=== PATIENT | female | born 1940 | race Caucasian/White ===

== ENCOUNTER 2025-06-06 11:10 | Outpatient (OUT) | payer MEDICARE, SELFPAY ==
[2025-06-06 12:30] LABS: Alanine Aminotransferase 34 U/L (14-59); Albumin Globulin Ratio 1.1; Albumin Level 3.8 g/dL (3.4-5.0); Alkaline Phosphatase 95 U/L (46-116); Anion Gap 17.0; Aspartate Amino Transferase 27 U/L (15-37); Blood Urea Nitrogen 31.0 mg/dL (7.0-18.0); Calcium 9.5 mg/dL (8.5-10.1); Carbon Dioxide 23.1 mmol/L (21.0-32.0); Chloride 107 mmol/L (98-107); Estimated GFR (African America >60 (>=60 mL/min/1.73m^2); Estimated GFR (Non-African Ame 55 (>=60 mL/min/1.73m^2); Gamma Glutamyl Transpeptidase 68 U/L (8-55); Globulin 3.5 g/dL; Glucose 106 mg/dL (74-106); Sodium 141 mmol/L (136-145); Total Protein 7.3 g/dL (6.4-8.2)
[2025-06-06 13:08] LABS: Potassium 6.1 mmol/L (3.5-5.1)
== END 2025-06-06 11:11 | disposition home or self-care (01) ==
LOC: LAB 11:19
PROVIDERS: PCP Internal Medicine; Visit Provider Nurse Practitioner Adult Health
DX: R79.89 Other specified abnormal findings of blood chemistry (principal); E11.21 Type 2 diabetes mellitus with diabetic nephropathy; Z79.4 Long term (current) use of insulin; I10 Essential (primary) hypertension
CPT/HCPCS: 36415; 80048; 80074; 80076; 82306; 82977; 84075; 84080

== ENCOUNTER 2025-06-08 08:59 | Outpatient (OUT) | payer MEDICARE, SELFPAY ==
--- OUTSIDE RECORDS SUMMARY | 2025-06-08 09:03 | XMS_ITS | Clinical Summary ---
Author Organization 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
--- OUTSIDE RECORDS SUMMARY | 2025-06-08 09:03 | XMS_ITS | Clinical Summary ---
Author Organization [facility] Address [address] [place] [address] Care Team Providers Care Operations Accountant Name Role Phone James Lynch DO Unavailable [phone] Kimmie Meneses DPM Unavailable [phone] Delmi Najera MA Unavailable [phone] Dhruv Patterson MD Primary Care Provider [phone] Allergies Active Allergy Reactions Criticality Noted Date Comments Celecoxib 02/03/2023 Other Reaction(s): Hives/Itching Other Reaction(s): rash Medications Multiple Vitamins-Minerals (PreserVision AREDS 2) capsule Take 1 capsule by mouth in the morning. Active acetaminophen (Tylenol 8 Hour) 650 MG ER tablet Take 650 mg by mouth every 8 (eight) hours if needed for mild pain. Do not crush, chew, or split. Active traMADol (Ultram) 50 MG tabletIndications :Spinal stenosis of lumbar region without neurogenic claudication Take 1 tablet (50 mg) by mouth every 8 (eight) hours if needed for severe pain 120 tablet 02/04/20 24 Active triamterene-hydro CHLOROthiazide (Dyazide) 37.5-25 MG capsuleIndication s:Benign essential hypertension Take 1 capsule by mouth in the morning. 90 capsule 2 11/09/19 25 Active ferrous sulfate 325 (65 Fe) MG EC tablet Take 325 mg by mouth in the morning and 325 mg before bedtime. Do not crush, chew, or split. Active Calcium Carb-Cholecalcife rol (Oyster Shell Calcium/Vit D3) 500-5 MG-MCG tablet Take by mouth Active ascorbic acid (Vitamin C) 500 MG ER capsule Take 500 mg by mouth Daily Active lisinopril 10 MG tabletIndications :Benign essential hypertension Take 1 tablet (10 mg) by mouth in the morning. 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 90 tablet 3 04/28/20 25 Active rOPINIRole (Requip) 0.5 MG tabletIndications :Restless Leg Syndrome Take one tablet at 2 pm and 2 tablets at bedtime 360 tablet 1 05/04/20 25 Active Continuous Glucose Event Decorator (Dexcom G7 Event Decorator) deviceIndications :Type 2 diabetes mellitus with stage 3b chronic kidney disease, without long-term current use of insulin ([facility]) 1 each in the morning and 1 each at noon and 1 each in the evening and 1 each before bedtime. 1 each 05/08/20 25 Active Continuous Glucose Sensor (Dexcom G7 Sensor) miscIndications:T ype 2 diabetes mellitus with stage 3b chronic kidney disease, without long-term current use of insulin ([facility]) 1 each Every 10 (ten) days 3 each 5 05/08/20 25 Active insulin glargine (Basaglar KwikPen) 100 UNIT/ML penIndications:Ty pe 2 diabetes mellitus with diabetic nephropathy, with long-term current use of insulin ([facility]) Inject 10 Units under the skin at bedtime 10 mL 3 05/11/20 25 026 Active metFORMIN (Glucophage) 500 MG tabletIndications :Type 2 diabetes mellitus with stage 3b chronic kidney disease, without long-term current use of insulin ([facility]) Take 1 tablet (500 mg) by mouth in the morning and 1 tablet (500 mg) in the evening. Take with meals. 180 tablet 1 06/07/20 Active alendronate (Fosamax) 70 MG tabletIndications :Spinal stenosis of lumbar region without neurogenic claudication Take 1 tablet (70 mg) by mouth 1 (one) time per week 12 tablet 3 06/07/20 25 Active alendronate (Fosamax) 70 MG tabletIndications :Spinal stenosis of lumbar region without neurogenic claudication Take 1 tablet (70 mg) by mouth 1 (one) time per week 90 tablet 3 11/09/19 25 025 Discontinued(Re order) metFORMIN (Glucophage) 500 MG tabletIndications :Type 2 diabetes mellitus with stage 3b chronic kidney disease, without long-term current use of insulin ([facility]) Take 1 tablet (500 mg) by mouth in the morning and 1 tablet (500 mg) in the evening. Take with meals. 180 tablet 11/09/19 25 025 Discontinued(Re order) insulin glargine (Lantus SoloStar) 100 UNIT/ML penIndications:Ty pe 2 diabetes mellitus with diabetic nephropathy, with long-term current use of insulin ([facility]) Inject 10 Units under the skin at bedtime 3 mL 12 05/08/20 025 Discontinued Active Problems Problem Noted Date Diagnosed Date Vitamin B12 deficiency 05/07/2025 Type 2 diabetes mellitus wit h diabetic nephropathy, with long-term current use of insulin 05/07/2025 Pure hypercholesterolemia 05/07/2025 Moderate major depression 05/07/2025 Vitamin D deficiency 05/07/2025 Primary insomnia 05/07/2025 Iron deficiency anemia 05/07/2025 Age-related osteoporosis wit hout current pathological fracture 01/29/2023 Essential hypertension 01/29/2023 Obstructive sleep apnea 01/29/2023 Overview (11/19/2023): Not wearing her c-pap Primary osteoarthritis involving multiple joints 01/29/2023 Stage 3b chronic kidney disease 01/29/2023 Venous insufficiency of both lower extremities 0 01/29/2023 Overactive bladder 01/29/2023 Restless legs syndrome 06/21/2008 Resolved Problems Problem Noted Date Diagnosed Date Resolved Date Left sided sciatica 11/19/2023 08/23/20 24 Morbid (severe) obesity due to excess calories (E66.01) 11/19/2023 08/23/2024 Body mass index [BMI] 40.0-4 4.9, adult (Z68.41) 11/19/2023 08/23/2024 Medicare annual wellness visit, subsequent 07/23/2023 11/19/2023 ACP (advance care planning) 07/23/2023 11/19/2023 Myalgia 07/23/2023 11/19/2023 Therapeutic drug monitoring 07/23/2023 11/19/2023 Lumbar canal stenosis 03/18/20232023 Nausea and vomiting 02/03/2023 07/23/20 23 Sciatica, left side 02/03/2023 07/23/20 23 Arthritis, senescent 02/03/2023 023 Unilateral primary osteoarthritis, right hip 07/23/2023 Arthritis of both knees 01/29/202306/26 Vitamin D deficiency 01/29/2023 023 Urge incontinence 01/29/2023 07/23/2023 Other obesity due to excess calories 01/29/2023 11/19/2023 Encounters Date Type Department Care Team Description 06/07/2025 Refill [facility] [address] [place] [address] Delmi Najera MA Type 2 diabetes mellitus with stage 3b chronic kidney disease, without long-term current use of insulin (HCC); Spinal stenosis of lumbar region without neurogenic claudication 06/07/2025 Telephone [facility] [address] [place] [address] lIiana Gerber MA 06/07/2025 Orders Only [facility] [address] [place] [address] Bruce Hopper NP 06/06/2025 Results Follow-Up [facility] [address] [place] [address] Bruce Hopper, SPRING [employer]LOOR SERVICE WORKER [facility] LIVER PANEL, ALL BASIC METABOLIC PANEL, ALL GAMMA GLUTAMYL TRANSPEPTIDASE, [facility] VITAMIN D 25 [place] 06/06/2025 Clinisync Result Encounter [facility] Unsolicited Bruce Hopper NP 06/06/2025 Telephone [facility] [address] [place] [address] Virginia Smith LPN critical lab 06/06/2025 Orders Only [facility] [address] [place] [address] Virginia Smith LPN Vitamin B12 deficiency 05/22/2025 1:00 PM EDT Clinical Support [facility] [address] [place] [address] Samuel Alexander RN Type 2 diabetes mellitus with diabetic nephropathy, with long-term current use of insulin (HCC) (Primary Dx); Stage 3b chronic kidney disease ([facility]) 05/22/2025 Bamboo flowsheet [facility] [address] [place] [address] Samuel Alexander RN 05/22/2025 Travel 05/12/20[facility] [address] [place] [address] Samuel Alexander RN DSME 05/11/[facility] [address] [place] [address] Liseth Cruz LPN Type 2 diabetes mellitus with diabetic nephropathy, with long-term current use of insulin (HCC) 05/08/2025 1:00 PM EDT Office Visit [facility] [address] [place] [address] Bruce Hopper NP Type 2 diabetes mellitus with diabetic nephropathy, with long-term current use of insulin (HCC) (Primary Dx); Essential hypertension ; Vitamin B12 deficiency; Elevated LFTs; Type 2 diabetes mellitus with stage 3b chronic kidney disease, without long-term current use of insulin (HCC) 05/08/2025 Telephone [facility] [address] [place] [address] Kade Bowser [place] Rollator 05/08/2025 Travel 05/04/20[facility] [address] [place] [address] Delmi Najera MA Restless legs syndrome 04/28/2025 Patient Out[facility] [address] [place] [address] Delmi Najera MA 04/18/2025 Telephone [facility] [address] [place] [address] Kade Bowser [place] PT and OT orders 03/09/2025 2:00 PM EDT Ancillary Procedure [facility] [address] [place] [address] 03/09/2025 Results Follow-Up [facility] [address] [place] [address] Chidi Santos, DO Vascular US lower extremity venous duplex left 03/09/2025 Travel from Last 3 Months Immunizations Immunization Administration Dates Next Due Influenza, High Dose Seasona l, Preservative Free 05/23/2022,07/09/2021,05/15/2017,06/05,05/31/2014 Influenza, Seasonal, Quadriv alent, Adjuvanted 07/09/2023 Influenza, seasonal, injecta ble, preservative free 06/25/2015 Influenza, seasonal, intrade rmal, preservative free 08/23/2013 Influenza, trivalent, adjuvanted 024,05/24/2020,05/31/2019,06/10 Moderna SARS-CoV-2 Booster Vaccination Moderna SARS-CoV-2 Vaccination 09/24/2021 Pneumococcal Conjugate PCV 13 02/04/2016 Pneumococcal Polysaccharide PPSV23 05/31/2014 Zoster, Recombinant 10/20/2018 Zoster, live 07/24/2013 Family History Medical History Relation Name Comments Bone cancer Brother Diabetes Mother Heart disease Mother Hypertension Mother Melanoma Neg Hx Relation Name Status Comments Brother patient has 3 b rothers Father Mother Son (2) Alive Social History Tobacco Use Types Packs/Day Years Used Date Smoking Tobacco: Never Passive Smoke Exposure: Past Smokeless Tobacco: Never Tobacco Cessation:Counseling Given: Not Answered Alcohol Use Standard Drinks/Week Comments Never 0 (1 standard drink = 0.6 oz pure alcohol) Caffeine: 2-3 cups/day coffee , 1 Diet coke daily AUDIT-C Answer Date Recorded Q1: How often do you have a drink containing alc ohol? Monthly or less 12/21/2023 Average Number of Drinks Not on file 024 Q3: How often do you have si x or more drinks on one occasion? Never 12/21/2023 PHQ-2 Answer Date Recorded Patient Health Questionnaire-2 Score 0 09/26/2024 Comments No Sex and Gender Information Value Date Recorded Sex Assigned at Not on file Legal Sex Female 6:37 PM EDT Gender Identity Not on file Sexual Orientation Not on file Occupation Industry Job Start Date Job End Date Retired Not on file Not on file Not on file Last Filed Vital Signs Vital Sign Reading Time Taken Comments Blood Pressure 136/70 05/08/2025 1:10 PM EDT Pulse 72 05/08/2025 1:10 PM EDT Temperature 36.7 C (98 F) 07/15/2024 11:05 AM EST Respiratory Rate 16 07/15/2024 11:05 AM EST Oxygen Saturation 96% 05/08/2025 1:10 PM EDT Inhaled Oxygen Concentration - - Weight 79.2 kg (174 lb 8 oz) 05/08/2025 1:10 PM EDT Height 154.9 cm (5' 1 ) 05/08/2025 1:10 PM EDT Body Mass Index 32.97 05/08/2025 1:10 PM EDT Plan of Treatment Upcoming Encounters Date Type Department Care Team (Late st Contact Info) Description 06/20/2025 2:30 PM EDT Clinical Support [facility] [address] [place] [address] Samuel Alexander RN 07/17/2025 3:30 PM EST Office Visit [facility] [place] [facility] [address] [place] [address] Health Maintenance Due Date Last Done Comments Diabetes: Retinopathy Screening 09/02/2024 09/02/2023, 07/12/2021, 05/30/2021, Additional history exists Influenza Vaccine (#1) 2025 4, 07/09/2023, 05/23/2022, Additional history exists Diabetes: Hemoglobin A1C 09/06/2025 025, 05/03/2025, 02/27/2025, Additional history exists Medicare Annual Wellness (AWV) 09/26/2025 09/26/2024 , 04/03/2022 Diabetes: Urine Protein Screening 02/27/2026 02/27/2025, 06/14/2024, 07/20/2023, Additional history exists Pneumococcal Vaccine: 65+ Years Completed 6, 05/31/2014 Procedures Procedure Name Priority Date/Time Associated Diagnosis Comments ACUTE HEPATITIS Routine 06/06/2025 11:42 AM EDT [facility] VITAMIN D 25 [place] Routine 06/06/2025 1 1:42 AM EDT ALL GAMMA GLUTAMYL TRANSPEPTIDASE Routine 06/06/2025 11:42 AM EDT ALL BASIC METABOLIC PANEL Routine 06/06/2025 11:42 AM EDT [facility] LIVER PANEL Routine 06/06/2025 11:4 2 AM EDT UR MICROSCOPIC REFLEX Routine 05/03/2025 11:02 AM EDT URINALYSIS, COMPLETE W/MICROSCOPY Routine 05/03/2025 11:02 AM EDT Stage 3b chronic kidney disease (CMS-HCC) Type 2 diabetes mellitus with stage 3b chronic kidney disease, without long-term current use of insulin (HCC) Mixed hyperlipidemia TSH Routine 05/03/2025 11:02 AM EDT Stage 3b chronic kidney disease (CMS-HCC) Type 2 diabetes mellitus with stage 3b chronic kidney disease, without long-term current use of insulin (HCC) Mixed hyperlipidemia LIPID PANEL Routine 05/03/2025 11:02 AM EDT Stage 3b chronic kidney disease (CMS-HCC) Type 2 diabetes mellitus with stage 3b chronic kidney disease, without long-term current use of insulin (HCC) Mixed hyperlipidemia HEMOGLOBIN A1C WITH EAG Routine 05/03/2025 11:02 AM EDT Stage 3b chronic kidney disease (CMS-HCC) Type 2 diabetes mellitus with stage 3b chronic kidney disease, without long-term current use of insulin (HCC) Mixed hyperlipidemia COMPREHENSIVE METABOLIC PANEL Routine 05/03/2025 11:02 AM EDT Stage 3b chronic kidney disease (CMS-HCC) Type 2 diabetes mellitus with stage 3b chronic kidney disease, without long-term current use of insulin (HCC) Mixed hyperlipidemia CBC (INCLUDES DIFF/PLT) Routine 05/03/2025 11:02 AM EDT Stage 3b chronic kidney disease (CMS-HCC) Type 2 diabetes mellitus with stage 3b chronic kidney disease, without long-term current use of insulin (HCC) Mixed hyperlipidemia VASC US LOWER EXTREMITY VENOUS DUPLEX LEFT STAT 03/09/2025 2:44 PM EDT Stage 3b chronic kidney disease (CMS-HCC) Type 2 diabetes mellitus with stage 3b chronic kidney disease, without long-term current use of insulin (HCC) Mixed hyperlipidemia Leg edema, left MICROALBUMIN / CREATININE URINE RATIO Routine 02/27/2025 11:10 AM EDT Benign essential hypertension Stage 3b chronic kidney disease (CMS-HCC) Type 2 diabetes mellitus with stage 3b chronic kidney disease, without long-term current use of insulin (HCC) COLOR FUNDUS PHOTOGRAPHY - OU - BOTH EYES Routine 07/12/2021 12:00 PM EST from Last 3 Months or Most Recently Relevant to Health Maintenance Results * ACUTE HEPATITIS (06/06/2025 11:42 AM EDT) Pathologist [facility] HEP A AB, IGM Negative Negative TB Comment: A negative anti-HAV IgM result suggests no recent or current HAV infection. HBSAG SCREEN Negative Negative TB HEP B CORE AB, IGM Negative Negative TB HCV AB Non Reactive Non Reactive TB INTERPRETATION: Comment . TB Comment: Not infected with HCV unless early or acute infection is suspected (which may be delayed in an immunocompromised individual), or other evidence exists to indicate HCV infection. Performed at: [facility] [address] [id number] [employer]: Morteza Ma PhD, Phone: [phone] 06/06/2025 11:4 2 AM EDT 06/06/2025 11:51 AM EDT Narrative [facility] - 06/07/2025 7:08 AM EDT Bruce Hopper NP LAB BLOOD ORDERABLES Final R esult Performing Organization Address [facility] Co de Phone Number [facility] * [facility] VITAMIN D 25 [place] (06/06/2025 11:42 AM EDT) [facility] VITAMIN D 87.3 ng/mL [facility] Comment: <20 ng/mL Vit D deficient 20-<30 ng/mL Vit D insufficient 30-100 ng/mL Vit D sufficient >100 ng/mL Potential Toxicity 06/06/2025 11:4 2 AM EDT 06/06/2025 11:51 AM EDT Narrative [facility] - 06/06/2025 1:49 PM EDT Bruce Hopper NP CL[facility]NC Final Result Performing Organization Address City/[facility]/ZIP Co de Phone Number [facility] * [facility] LIVER PANEL (06/06/2025 11:42 AM EDT) [facility] BILIRUBIN TOTAL 0.4 0.2 - 1.0 mg/dL TB BILIRUBIN DIRECT 0.1 0.0 - 0.2 mg/dL TB ASPARTATE AMINO TRANSFERASE 27 15 - 37 U/L [facility] ALANINE AMINOTRANSFERASE 34 14 - 59 U/L [facility] ALKALINE PHOSPHATASE 95 46 - 116 U/L [facility] TOTAL PROTEIN 7.3 6.4 - 8.2 g/dL [facility] ALBUMIN LEVEL 3.8 3.4 - 5.0 g/dL [facility] GLOBULIN 3.5 g/dL [facility] ALBUMIN GLOBULIN RATIO 1.1 [facility] 06/06/2025 11:4 2 AM EDT 06/06/2025 11:51 AM EDT Narrative [facility] - 06/06/2025 1:08 PM EDT Bruce Hopper [employer]ING [employer] SERVICE WORKER [facility] Final Result [facility] TB * (ABNORMAL) ALL GAMMA GLUTAMYL TRANSPEPTIDASE (06/06/2025 11:42 AM EDT) GAMMA GLUTAMYL TRANSPEPTIDASE 68(H) 8 - 55 U/L [facility] 06/06/2025 11:4 2 AM EDT 06/06/2025 11:51 AM EDT Narrative [facility] - 06/06/2025 1:08 PM EDT Bruce Hopper [employer]ING [employer] SERVICE WORKER CLINISYNC Final Result Performing Organization Address [facility] de Phone Number [facility] TB * (ABNORMAL) ALL BASIC METABOLIC PANEL (06/06/2025 11:42 AM EDT) SODIUM 141 136 - 145 mmol/L TBH POTASSIUM 6.1(HH) 3.5 - 5.1 mmol/L [facility] Comment:RESULTS CALLED TO CHLORIDE 107 98 - 107 mmol/L TBH CARBON DIOXIDE 23.1 21.0 - 32.0 mmol/L TBH ANION GAP 17.0 TBH GLUCOSE 106 74 - 106 mg/dL [facility] BLOOD UREA NITROGEN 31.0(H) 7.0 - 18.0 mg/dL TBH CREATININE 0.97 0.55 - 1.02 mg/dL TBH TBH EGFR-AF YEMENI >60 >=60 mL/min/1.7 3m 2 TBH TBH EGFR-NON AF YEMENI 55(L) >=60 mL/min/1.7 3m 2 TBH BUN CREATININE RATIO 32.0 TBH CALCIUM 9.5 8.5 - 10.1 mg/dL [facility] 06/06/2025 11:4 2 AM EDT 06/06/2025 11:51 AM EDT Narrative CLINISYNC - 06/06/2025 1:08 PM EDT us Bruce Hopper [employer] WORKER CLINISYNC Final Result Performing Organization Address City/[facility] Co de Phone Number [facility] * (ABNORMAL) Ur Microscopic Reflex (05/03/2025 11:02 AM EDT) WBC Ur 11-30(A) 0 - 5 /hpf [facility] RBC Ur None seen 0 - 2 /hpf [facility] Epithelial Cells (non renal) Ur 0-10 0 - 10 /hpf [facility] Bacteria Ur Few None seen/Few [facility] 05/03/2025 11:0 2 AM EDT 05/03/2025 Narrative [facility] - 05/04/2025 9:07 AM EDT Performed at: 01 [facility] [address], [address], [place], [place] [id number] [employer]: Lila Steward MD, Phone: [phone] us Chidi Santos DO LAB URINE ORDERABLES Final R esult Performing Organization Address [facility] Co de Phone Number [facility] * (ABNORMAL) Hemoglobin a1c with eag (05/03/2025 11:02 AM EDT) HgbA1C 8.1(H) 4.8 - 5.6 % [facility] Comment: Prediabetes: 5.7 - 6.4 Diabetes: >6.4 Glycemic control for adults with diabetes: <7.0 Est Avg Gluc eAG 186 mg/dL [facility] Blood Venous blood specimen / Unknown 05/03/2025 11:02 AM EDT 05/03/2025 Narrative [facility] - 05/04/2025 9:07 AM EDT Performed at: [address], [place] [id number] [employer]: Morteza Ma PhD, Phone: [phone] Chidi Santos DO LAB BLOOD ORDERABLES Final R esult Performing Organization Address [facility] Co de Phone Number [facility] * (ABNORMAL) Urinalysis with microscopic (05/03/2025 11:02 AM EDT) Specific [place] Urine 1.025 1.005 - 1.030 [facility] pH Urine 5.5 5.0 - 7.5 [facility] Color Urine Yellow Yellow [facility] Appearance Urine Clear Clear [facility] WBC Esterase Urine 1+(A) Negative [facility] Protein Urine Trace Negative/Tra ce [facility] Glucose Urine Negative Negative [facility] Ketones Urine Negative Negative [facility] Occult Blood Urine Trace(A) Negative [facility] Bilirubin Urine Negative Negative [facility] Urobilinogen,Se mi-Qn Urine 0.2 0.2 - 1.0 mg/dL [facility] Nitrite Urine Negative Negative [facility] Ur Microscopic See below: [facility] Urine Urine specimen obtained by clean catch procedure / Unknown 05/03/2025 11:02 AM EDT 05/03/2025 Narrative [facility] - 05/04/2025 9:07 AM EDT Performed at: 01 - [facility] [place] [address] [facility], [address], [place], [place] [id number] [employer]: Lila Steward MD, Phone: [phone] Chidi Santos DO LAB URINE ORDERABLES Final R esult Performing Organization Address [facility]/ZIP Co de Phone Number [facility] * CBC and differential (05/03/2025 11:02 AM EDT) WBC 6.3 3.4 - 10.8 x10E3/uL [facility] RBC 3.86 3.77 - 5.28 x10E6/uL [facility] Hgb 11.6 11.1 - 15.9 g/dL [facility] Hct 36.7 34.0 - 46.6 % [facility] MCV 95 79 - 97 fL [facility] MCH 30.1 26.6 - 33.0 pg [facility] MCHC 31.6 31.5 - 35.7 g/dL [facility] RDW 13.8 11.7 - 15.4 % [facility] Platelets 263 150 - 450 x10E3/uL [facility] Neutrophils 68 Not Estab. % [facility] Lymphs 18 Not Estab. % [facility] Monocytes 9 Not Estab. % [facility] Eos 3 Not Estab. % [facility] Basos 1 Not Estab. % [facility] Neutrophils Abs 4.3 1.4 - 7.0 x10E3/uL [facility] Lymphs Abs 1.1 0.7 - 3.1 x10E3/uL [facility] MonocytesAbs 0.6 0.1 - 0.9 x10E3/uL [facility] Eos Abs 0.2 0.0 - 0.4 x10E3/uL [facility] Baso Abs 0.0 0.0 - 0.2 x10E3/uL [facility] Immature Granulocytes 1 Not Estab. % [facility] Immature Grans Abs 0.1 0.0 - 0.1 x10E3/uL [facility] Blood Venous blood specimen / Unknown 05/03/2025 11:02 AM EDT 05/03/2025 Narrative [facility] - 05/04/2025 9:07 AM EDT Performed at: [address] [place] [address], [address] [place] [id number] [employer]: Lila Steward MD, Phone: [phone] Chidi Santos DO LAB BLOOD ORDERABLES Final R esult [facility] * TSH (05/03/2025 11:02 AM EDT) Pathologist [facility] TSH 2.160 0.450 - 4.500 uIU/mL [facility] Blood Venous blood specimen / Unknown 05/03/2025 11:02 AM EDT 05/03/2025 Narrative [facility] - 05/04/2025 9:07 AM EDT Performed at: [address] [place] [address] [address] [facility], [address], [place], [place] [id number] [employer]: Lila Steward MD, Phone: [phone] Chidi Santos DO LAB BLOOD ORDERABLES Final R esult Performing Organization Address [facility] Co de Phone Number [facility] * Lipid panel (05/03/2025 11:02 AM EDT) Cholesterol, Total 182 100 - 199 mg/dL [facility] Triglycerides 72 0 - 149 mg/dL [facility] HDL Cholesterol 76 >39 mg/dL [facility] VLDL Cholesterol Mathieu 13 5 - 40 mg/dL [facility] LDL Chol Calc (NIH) 93 0 - 99 mg/dL [facility] Blood Venous blood specimen / Unknown 05/03/2025 11:02 AM EDT 05/03/2025 Narrative [facility] - 05/04/2025 9:07 AM EDT Performed at: 02 - [address] [id number] [employer]: Morteza Ma PhD, Phone: [phone] Chidi Santos DO LAB BLOOD ORDERABLES Final R esult Performing Organization Address [facility] de Phone Number [facility] * (ABNORMAL) Comprehensive metabolic panel (05/03/2025 11:02 AM EDT) Glucose 146(H) 70 - 99 mg/dL [facility] BUN 36(H) 8 - 27 mg/dL [facility] Creat 1.01(H) 0.57 - 1.00 mg/dL [facility] EGFR 55(L) >59 mL/min/1.7 3 [facility] BUN/Creat Ratio 36(H) 12 - 28 [facility] Sodium 141 134 - 144 mmol/L [facility] Potassium 5.1 3.5 - 5.2 mmol/L [facility] Chloride 105 96 - 106 mmol/L [facility] Carbon Dioxide 24 20 - 29 mmol/L [facility] Calcium 9.8 8.7 - 10.3 mg/dL [facility] Protein Total 6.7 6.0 - 8.5 g/dL [facility] Albumin 4.4 3.7 - 4.7 g/dL [facility] Globulin Total 2.3 1.5 - 4.5 g/dL [facility] Bili Total 0.4 0.0 - 1.2 mg/dL [facility] Alk Phosphatase 182(H) 44 - 121 IU/L [facility] Comment: Effective May 08, 2025 Alkaline Phosphatase reference interval will be changing to: Age Male Female 0 - 5 days 47 - 127 47 - 127 6 - 10 days 29 - 242 29 - 242 11 - 20 days 109 - 357 109 - 357 21 - 30 days 94 - 494 94 - 494 1 - 2 months 149 - 539 149 - 539 3 - 6 months 131 - 452 131 - 452 7 - 11 months 117 - 401 117 - 401 12 months - 6 years 158 - 369 158 - 369 7 - 12 years 150 - 409 150 - 409 13 years 156 - 435 78 - 227 14 years 114 - 375 64 - 161 15 years 88 - 279 56 - 134 16 years 74 - 207 51 - 121 17 years 63 - 161 47 - 113 18 - 20 years 51 - 125 42 - 106 21 - 50 years 47 - 123 41 - 116 51 - 80 years 49 - 135 51 - 125 >80 years 48 - 129 48 - 129 AST 58(H) 15 - 50 IU/L [facility] ALT 104(H) 0 - 35 IU/L [facility] Blood Venous blood specimen / Unknown 05/03/2025 11:02 AM EDT 05/03/2025 Narrative [facility] - 05/04/2025 9:07 AM EDT Performed at: 01 - [facility] [address] , [address], [place], [place] [id number] Journeyman Apprentice Electricians: Lila Steward MD, Phone: [phone] us Chidi Santos DO LAB BLOOD ORDERABLES Final R esult [facility] * Vascular US lower extremity venous duplex left (03/09/2025 2:44 PM EDT) Anatomical Region Laterality Modality Lower Extremities Ultrasound 03/09/2025 2:46 PM EDT Impressions 03/09/2025 2:46 PM EDT No acute DVT of the left lower extremity. ELECTRONICALLY SIGNED BY: Jarett Smith MD Narrative 03/09/2025 2:46 PM EDT HISTORY: Left lower extremity edema. COMPARISON: 07/10/2023. TECHNIQUE: The left lower extremity veins were evaluated with color Doppler, grayscale imaging, and spectral analysis while using compression and augmentation when possible. RESULT: Some limitations from patient body habitus. Evaluation of the left lower extremity veins from the thigh to the calf shows normal phasic flow, and normal augmentation of the Doppler signal, and normal compression of the deep veins. There is no sonographic evidence for acute deep venous thrombosis from the left groin to the popliteal region. There is no sonographic evidence for acute deep vein thrombosis in the left calf veins. No evidence for SVT. Procedure Note Jarett Smith MD - 03/09/2025 HISTORY: Left lower extremity edema. COMPARISON: 07/10/2023. TECHNIQUE: The left lower extremity veins were evaluated with colorDoppler, grayscale imaging, and spectral analysis while using compressionand augmentation when possible. RESULT: Some limitations from patient body habitus. Evaluation of the left lower extremity veins from the thigh to the calfshows normal phasic flow, and normal augmentation of the Doppler signal,and normal compression of the deep veins. There is no sonographic evidencefor acute deep venous thrombosis from the left groin to the poplitealregion. There is no sonographic evidence for acute deep vein thrombosis inthe left calf veins. No evidence for SVT. IMPRESSION: No acute DVT of the left lower extremity. ELECTRONICALLY SIGNED BY: Jarett Smith MD Chidi Santos DO [facility] US PROCEDURES Final Resu lt * Microalbumin / creatinine urine ratio (02/27/2025 11:10 AM EDT) Creat Ur 129.9 Not Estab. mg/dL [facility] Albumin Ur 8.1 Not Estab. ug/mL [facility] Alb/Creat Ratio Urine 6 0 - 29 mg/g creat [facility] Comment: Normal: 0 - 29 Moderately increased: 30 - 300 Severely increased: >300 Urine Urine specimen obtained by clean catch procedure / Unknown 02/27/2025 11:10 AM EDT 02/27/2025 Narrative [facility] - 02/28/2025 11:07 AM EDT Performed at: 02 - [facility] [id number] Journeyman Apprentice Electricians: Morteza Ma PhD, Phone: [phone] us Bruce Hopper SPRING FLOOR SERVICE WORKER LAB URINE ORDERABLES Final R esult [facility] * Color Fundus Photography - OU - Both Eyes (07/12/2021 12:00 PM EST) Anatomical Region Laterality Modality Head Fundus Photograp hy 07/12/2021 12:0 0 PM EST Narrative 07/12/2021 12:00 PM EST PERFORMED AT [facility] LOCATION:[id number] Procedure Note CONVERSION, GENERIC - 01/07/2023 PERFORMED AT [facility] LOCATION:[id number] us Chidi Santos DO OPHTH PHOTOGRAPHY Final Resu lt from Last 3 Months or Most Recently Relevant to Health Maintenance [place] [address] MEDICARE AET Advance Directives Documents on File Type Date Recorded Patient Vice Chair Expl anation Advance Directives and Living Will 11/19/2023 9:53 AM 2022-04-23 Living [place] Care Teams Operations Accountant Relationship Specialty Start Date End Date Dhruv Patterson MD [address] [place] [address] PCP - General Internal Medicine 04/28/25 James Lynch DO [address] [place], [place] Referring Physician Orthopaedic Surgery 07/23/23 Kimmie Meneses DPM [address] [place] [address] Referring Physician Podiatry 07/23/23 Delmi Najera MA Family Medicine 06/22/24
--- OUTSIDE RECORDS SUMMARY | 2025-06-08 09:03 | XMS_ITS | Encounter Summary ---
Author Organization [facility] Address [address] [facility] [place] [address] Care Team Providers Care Event Av Operator Name Role Phone Chidi Santos DO Unavailable [phone] Chidi Santos DO Primary Care Provider + [phone] James Lynch DO Unavailable [phone] Kimmie Meneses DPM Unavailable [phone] Delmi Najera MA Unavailable [phone] Dhruv Patterson MD Primary Care Provider [phone] Encounter Details Date Type Department Care Team (Late st Contact Info) Description 06/14/2024 Orders Only [facility] [address] [place] [phone] Misti Patterson MA Mixed hyperlipidemia ; Benign essential hypertension ; Other fatigue; Type 2 diabetes mellitus with stage 3b chronic kidney disease, without long-term current use of insulin (HCC) Social History Tobacco Use Types Packs/Day Years Used Date Smoking Tobacco: Never Passive Smoke Exposure: Past Smokeless Tobacco: Never Alcohol Use Standard Drinks/Week Comments Never 0 [...] Date Recorded Patient Health Questionnaire-2 Score 0 07/23/2023 Comments No Sex and Gender Information Value Date Recorded Sex Assigned at Not on file Legal Sex Female 6:37 PM EDT Gender Identity Not on file Sexual Orientation Not on file Occupation Industry Job Start Date Job End Date Retired Not on file Not on file Not on file documented as of this encounter Plan of Treatment Upcoming Encounters Date Type Department Care Team (Late st Contact Info) Description 06/20/2025 2:30 PM EDT Clinical Support [facility] Patient Eduction [address] [place] [address] Samuel Aleaxnder RN 07/17/2025 3:30 PM EST Office Visit [facility] [address] [place] [address] documented as of this encounter Procedures Procedure Name Priority Date/Time Associated Diagnosis Comments HEMOGLOBIN A1C WITH EAG Routine 06/14/2024 10:20 AM EDT Type 2 diabetes mellitus with stage 3b chronic kidney disease, without long-term current use of insulin (HCC) MICROALBUMIN / CREATININE URINE RATIO Routine 06/14/2024 10:20 AM EDT Mixed hyperlipidemia Benign essential hypertension CBC (INCLUDES DIFF/PLT) Routine 06/14/2024 10:20 AM EDT Mixed hyperlipidemia Benign essential hypertension Type 2 diabetes mellitus with stage 3b chronic kidney disease, without long-term current use of insulin (HCC) TSH Routine 06/14/2024 10:20 AM EDT Other fatigue LIPID PANEL Routine 06/14/2024 10:20 AM EDT Mixed hyperlipidemia COMPREHENSIVE METABOLIC PANEL Routine 06/14/2024 10:20 AM EDT Benign essential hypertension Type 2 diabetes mellitus with stage 3b chronic kidney disease, without long-term current use of insulin (HCC) documented in this encounter Results * (ABNORMAL) Microalbumin / creatinine urine ratio (06/14/2024 10:20 AM EDT) Creat Ur 237.0 Not Estab. mg/dL [facility] Albumin Ur 198.7 Not Estab. ug/mL [facility] Alb/Creat Ratio Urine 84(H) 0 - 29 mg/g creat [facility] Comment: Normal: 0 - 29 Moderately increased: 30 - 300 Severely increased: >300 Urine Urine specimen obtained by clean catch procedure / Unknown 06/14/2024 10:20 AM EDT 06/14/2024 Narrative [facility] - 06/15/2024 10:08 AM EDT Performed at: 01 - [facility] [id number] Air Compressor Operator: Morteza Ma PhD, Phone: [phone] us Chidi Santos DO LAB URINE ORDERABLES Final R esult [facility] * (ABNORMAL) CBC and differential (06/14/2024 10:20 AM EDT) WBC 6.9 3.4 - 10.8 x10E3/uL [facility] RBC 3.98 3.77 - 5.28 x10E6/uL [facility] Hgb 11.7 11.1 - 15.9 g/dL [facility] Hct 37.4 34.0 - 46.6 % [facility] MCV 94 79 - 97 fL [facility] MCH 29.4 26.6 - 33.0 pg [facility] MCHC 31.3(L) 31.5 - 35.7 g/dL [facility] RDW 12.4 11.7 - 15.4 % [facility] Platelets 266 150 - 450 x10E3/uL [facility] Neutrophils 78 Not Estab. % [facility] Lymphs 11 Not Estab. % [facility] Monocytes 9 Not Estab. % [facility] Eos 1 Not Estab. % [facility] Basos 1 Not Estab. % [facility] Neutrophils Abs 5.3 1.4 - 7.0 x10E3/uL [facility] Lymphs Abs 0.8 0.7 - 3.1 x10E3/uL [facility] MonocytesAbs 0.6 0.1 - 0.9 x10E3/uL [facility] Eos Abs 0.1 0.0 - 0.4 x10E3/uL [facility] Baso Abs 0.0 0.0 - 0.2 x10E3/uL [facility] Immature Granulocytes 0 Not Estab. % [facility] Immature Grans Abs 0.0 0.0 - 0.1 x10E3/uL [facility] Blood Venous blood specimen / Unknown 06/14/2024 10:20 AM EDT 06/14/2024 Narrative [facility] - 06/15/2024 10:08 AM EDT Performed at: 01 - [address] [id number] Air Compressor Operator: Morteza Ma PhD, Phone: [phone] us Chidi Santos DO LAB BLOOD ORDERABLES Final R esult [facility] * (ABNORMAL) Comprehensive metabolic panel (06/14/2024 10:20 AM EDT) Glucose 153(H) 70 - 99 mg/dL [facility] BUN 20 8 - 27 mg/dL [facility] Creat 0.86 0.57 - 1.00 mg/dL [facility] EGFR 67 >59 mL/min/1.7 3 [facility] BUN/Creat Ratio 23 12 - 28 [facility] Sodium 143 134 - 144 mmol/L [facility] Potassium 4.0 3.5 - 5.2 mmol/L [facility] Chloride 105 96 - 106 mmol/L [facility] Carbon Dioxide 23 20 - 29 mmol/L [facility] Calcium 9.3 8.7 - 10.3 mg/dL [facility] Protein Total 6.0 6.0 - 8.5 g/dL [facility] Albumin 3.8 3.7 - 4.7 g/dL [facility] Globulin Total 2.2 1.5 - 4.5 g/dL [facility] Bili Total 0.5 0.0 - 1.2 mg/dL [facility] Alk Phosphatase 104 44 - 121 IU/L [facility] AST 13 0 - 40 IU/L [facility] ALT 7 0 - 32 IU/L [facility] Blood Venous blood specimen / Unknown 06/14/2024 10:20 AM EDT 06/14/2024 Narrative [facility] - 06/15/2024 10:08 AM EDT Performed at: - [address] [id number] Air Compressor Operator: Morteza Ma PhD, Phone: [phone] Chidi Santos DO LAB BLOOD ORDERABLES Final R esult Performing Organization Address City/[facility]/ZIP Co de Phone Number [facility] * Lipid panel (06/14/2024 10:20 AM EDT) Cholesterol, Total 105 100 - 199 mg/dL [facility] Triglycerides 130 0 - 149 mg/dL [facility] HDL Cholesterol 42 >39 mg/dL [facility] VLDL Cholesterol Mathieu 23 5 - 40 mg/dL [facility] LDL Chol Calc (NIH) 40 0 - 99 mg/dL [facility] Blood Venous blood specimen / Unknown 06/14/2024 10:20 AM EDT 06/14/2024 Narrative [facility] - 06/15/2024 10:08 AM EDT Performed at: - [facility] [id number] Air Compressor Operator: Morteza Ma PhD, Phone: [phone] Chidi Santos DO LAB BLOOD ORDERABLES Final R esult Performing Organization Address [facility]/ZIP Co de Phone Number [facility] * (ABNORMAL) Hemoglobin a1c with eag (06/14/2024 10:20 AM EDT) HgbA1C 6.5(H) 4.8 - 5.6 % [facility] Comment: Prediabetes: 5.7 - 6.4 Diabetes: >6.4 Glycemic control for adults with diabetes: <7.0 Est Avg Gluc eAG 140 mg/dL [facility] Blood Venous blood specimen / Unknown 06/14/2024 10:20 AM EDT 06/14/2024 Narrative [facility] - 06/15/2024 10:08 AM EDT Performed at: - [facility] [address] [id number] Air Compressor Operator: Morteza Ma PhD, Phone: [phone] us Chidi Santos DO LAB BLOOD ORDERABLES Final R esult Performing Organization Address City/[facility]/ZIP Co de Phone Number [facility] * TSH (06/14/2024 10:20 AM EDT) TSH 0.863 0.450 - 4.500 uIU/mL [facility] Blood Venous blood specimen / Unknown 06/14/2024 10:20 AM EDT 06/14/2024 Narrative [facility] - 06/15/2024 10:08 AM EDT Performed at: - [facility] [id number] Air Compressor Operator: Morteza Ma PhD, Phone: [phone] us Chidi Santos DO LAB BLOOD ORDERABLES Final R esult Performing Organization Address City/[facility] Co de Phone Number [facility] documented in this encounter Visit Diagnoses Diagnosis Mixed hyperlipidemia Benign essential hypertension Essential hypertension, benign Other fatigue Type 2 diabetes mellitus with stage 3b chronic kidney disease, without long-term current use of insulin (HCC) documented in this encounter Additional Health Concerns Assessment Noted Time PHQ-9 Depression Total Score: 0 07/23/20 23 11:00 AM EST A fall risk assessment has been complete d for the patient 02/13/2023 10:21 AM EDT documented as of this encounter Care Teams Event Av Operator Relationship Specialty Start Date End Date Chidi Santos DO [address] [place] [address] PCP - ACO Reach 01/15/23 12/22/24 Chidi Santos DO [address] [place] [address] PCP - General Internal Medicine 02/03/23 04/27/25 Dhruv Patterson MD [address] [place] [address] PCP - General Internal Medicine 04/28/25 James Lynch DO [address] [place], [place] Referring Physician Orthopaedic Surgery 07/23/23 Kimmie Meneses DPM [address] [place] [address] Referring Physician Podiatry 07/23/23 Delmi Najera MA Family Medicine 06/22/24 documented as of this encounter
--- OUTSIDE RECORDS SUMMARY | 2025-06-08 09:03 | XMS_ITS | Encounter Summary ---
Author Organization [facility] Address [address] [place] [address] [place] [address] Care Team Providers Care Safety Engineer Pressure Vessels Name Role Phone Chidi Santos DO Unavailable [phone] Chidi Santos DO Primary Care Provider + [phone] James Lynch DO Unavailable [phone] Kimmie Meneses DPM Unavailable [phone] Delmi Najera MA Unavailable [phone] Dhruv Patterson MD Primary Care Provider [phone] Encounter Details Date Type Department Care Team (Late st Contact Info) Description 06/11/2023 Abstract [facility] [place] [facility] [address] [place] [phone] Kimmie Meneses, DPM [address] [place] [address] Social History Tobacco Use Types Packs/Day Years Used Date Smoking Tobacco: Never Passive Smoke Exposure: Past Smokeless Tobacco: Never Alcohol Use Standard Drinks/Week Comments Never 0 (1 standard drink = 0.6 oz pure alcohol) Caffeine: 2-3 cups/day coffee , 1 Diet coke daily AUDIT-C Answer Date Recorded Q1: How often do you have a drink containing alcohol? Never 06/09/2023 Q2: How many drinks containi ng alcohol do you have on a typical day when you are drinking? Patient does not drink Q3: How often do you have si x or more drinks on one occasion? Never 06/09/2023 PHQ-2 Answer Date Recorded Patient Health Questionnaire-2 Score 0 03/18/2023 Comments Unknown Sex and Gender Information Value [...] 06/20/2025 2:30 PM EDT Clinical Support MANDOMadalyn Dyery Patient Eduction [address] [place] [address] Samuel Alexander RN 07/17/2025 3:30 PM EST Office Visit [facility] [place] [facility] [address] [place] [address] documented as of this encounter Visit Diagnoses Not on filedocumented in this encounter Additional Health Concerns Assessment Noted Time A fall risk assessment has been complete d for the patient 02/13/2023 10:21 AM EDT documented as of this encounter Care Teams Safety Engineer Pressure Vessels Relationship Specialty Start Date End Date Chidi Santos DO [address] [place] [address] PCP - ACO Reach 01/15/23 12/22/24 Chidi Santos DO [address] [place] [address] PCP - General Internal Medicine 02/03/23 04/27/25 Dhruv Patterson MD [address] [place] [address] PCP - General Internal Medicine 04/28/25 James Lynch DO [address] [place], [place] Referring Physician Orthopaedic Surgery 07/23/23 Kimmie Meneses DPM [address] [place] [address] Referring Physician Podiatry 07/23/23 Delmi Najera MA Family Medicine 06/22/24 documented as of this encounter
--- OUTSIDE RECORDS SUMMARY | 2025-06-08 09:03 | XMS_ITS | Encounter Summary ---
Author Organization [facility] Address [address] [facility] [address] [place] [address] Care Team Providers Care Director Telehealth Name Role Phone Chidi Santos DO Unavailable [phone] Chidi Santos DO Primary Care Provider + [phone] James Lynch DO Unavailable [phone] Kimmie Meneses DPM Unavailable [phone] Delmi Najera MA Unavailable [phone] Dhruv Patterson MD Primary Care Provider [phone] Encounter Details Date Type Department Care Team (Late st Contact Info) Description 07/05/2024 Orders Only [facility] [address] [facility] [address] [place] [address] A, Unknown Practice [address] [place], [place] [address] Social History Tobacco Use Types Packs/Day Years [...] Support VON[facility]IE [facility] Patient Eduction [address] [place] [phone] Samuel Alexander RN 07/17/2025 3:30 PM EST Office Visit [facility] [address] [place] [address] documented as of this encounter Procedures Procedure Name Priority Date/Time Associated Diagnosis Comments TRANSTHORACIC ECHO (TTE) COMPLETE Routine 07/04/2024 11:27 AM EST documented in this encounter Results * Transthoracic echo (TTE) complete (07/04/2024 11:27 AM EST) Anatomical Region Laterality Modality Heart Ultrasound us Unknown Practice A CV ECHO PROCEDURES Final Resu lt documented in this encounter Visit Diagnoses Not on filedocumented in this encounter Additional Health Concerns Assessment Noted Time PHQ-9 Depression Total Score: 0 07/23/20 11:00 AM EST A fall risk assessment has been complete d for the patient 02/13/2023 10:21 AM EDT documented as of this encounter Care Teams Director Telehealth Relationship Specialty Start Date End Date Chidi Santos DO [address] [place] [address] PCP - ACO Reach 01/15/23 12/22/24 Chidi Santos DO [address] [place] [address] PCP - General Internal Medicine 02/03/23 04/27/25 Dhruv Patterson MD [address] [place] [address] PCP - General Internal Medicine 04/28/25 James Lynch DO [address] [place], [place] Referring Physician Orthopaedic Surgery 07/23/23 Kimmie Meneses DPM [address] [facility] [address] [place] [address] Referring Physician Podiatry 07/23/23 Delmi Najera MA Family Medicine 06/22/24 documented as of this encounter
--- OUTSIDE RECORDS SUMMARY | 2025-06-08 09:03 | XMS_ITS | Encounter Summary ---
Author Organization [facility] Address [address] [facility] [place] [address] Care Team Providers Care Navy Seal Name Role Phone James Lynch DO Unavailable [phone] Kimmie Meneses DPM Unavailable [phone] Delmi Najera MA Unavailable [phone] Dhruv Patterson MD Primary Care Provider [phone] Reason for Visit * Reason Onset Date Comments critical lab 06/06/2025 Encounter Details Date Type Department Care Team (Late st Contact Info) Description 06/06/2025 Telephone [facility] [place] [facility] [address] [facility] [address] [place] [phone] Virginia Smith LPN critical lab Social History Tobacco Use Types Packs/Day Years [...] on file documented as of this encounter Miscellaneous Notes * Telephone Encounter - [place] - 06/06/2025 4:43 PM EDT Address in other note * Telephone Encounter - [place] whelan - 06/06/2025 1:09 PM EDT Lab reports critical lab K+ 6.1 documented in this encounter Plan of Treatment Upcoming Encounters Date Type Department Care Team (Late st Contact Info) Description 06/20/2025 2:30 PM EDT Clinical Support [facility]ON[facility]IE [place] Patient Eduction [address] [place] [address] Samuel Alexander RN 07/17/2025 3:30 PM EST Office Visit [facility] [place] [address] [place] [address] documented as of this encounter Visit Diagnoses Not on filedocumented in this encounter Additional Health Concerns Assessment Noted Time PHQ-9 Depression Total Score: 5 09/26/19 25 3:00 PM EST A fall risk assessment has been complete d for the patient 02/13/2023 10:21 AM EDT documented as of this encounter Care Teams Navy Seal Relationship Specialty Start Date End Date Dhruv Patterson MD [address] [place] [address] PCP - General Internal Medicine 04/28/25 James Lynch DO [address] [place] Referring Physician Orthopaedic Surgery 07/23/23 Kimmie Meneses DPM [address] [place] [address] Referring Physician Podiatry 07/23/23 Delmi Najera MA Family Medicine 06/22/24 documented as of this encounter
--- OUTSIDE RECORDS SUMMARY | 2025-06-08 09:03 | XMS_ITS | Encounter Summary ---
Author Organization [facility] Address [address] [facility] [place] [address] Care Team Providers Care Fountain Vending Mechanic Name Role Phone James Lynch DO Unavailable [phone] Kimmie Meneses DPM Unavailable [phone] Delmi Najera MA Unavailable [phone] Dhruv Patterson MD Primary Care Provider [phone] Reason for Visit * Reason Onset Date Comments Med Refill 06/07/2025 Encounter Details Date Type Department Care Team (Late st Contact Info) Description 06/07/2025 Refill [facility] [address] [place] [phone] Delmi Najera MA Type 2 diabetes mellitus with stage 3b chronic kidney disease, without long-term current use of insulin (HCC); Spinal stenosis of lumbar region without neurogenic claudication Social History Tobacco Use Types Packs/Day Years [...] [address] [place] [address] Samuel Alexander RN 07/17/2025 3:30 PM EST Office Visit [facility] [address] [place] [address] documented as of this encounter Visit Diagnoses Diagnosis Type 2 diabetes mellitus with stage 3b chronic kidney disease, without long-term current use of insulin (HCC) Spinal stenosis of lumbar region without neurogenic claudication documented in this encounter Additional Health Concerns Assessment Noted Time PHQ-9 Depression Total Score: 5 09/26/19 25 3:00 PM EST A fall risk assessment has been complete d for the patient 02/13/2023 10:21 AM EDT documented as of this encounter Care Teams Fountain Vending Mechanic Relationship Specialty Start Date End Date Dhruv Patterson MD [address] [place] [address] PCP - General Internal Medicine 04/28/25 James Lynch DO [address] [place] Referring Physician Orthopaedic Surgery 07/23/23 Kimmie Meneses DPM [address] [place] [address] Referring Physician Podiatry 07/23/23 Delmi Najera MA Family Medicine 06/22/24 documented as of this encounter
--- OUTSIDE RECORDS SUMMARY | 2025-06-08 09:03 | XMS_ITS | Encounter Summary ---
Author Organization [facility] Address [address] [place] [address] Care Team Providers Care Erosion Control Specialist Name Role Phone James Lynch DO Unavailable [phone] Kimmie Meneses DPM Unavailable [phone] Delmi Najera MA Unavailable [phone] Dhruv Patterson MD Primary Care Provider [phone] Encounter Details Date Type Department Care Team (Late st Contact Info) Description 06/06/2025 Results Follow-Up [facility] Internal Medicine [address] [facility] [address] [place] [address] Bruce Hopper, WIRE WRAPPING MACHINE OPERATOR [address] [facility] [address] [place] [address] HP LIVER PANEL, ALL BASIC METABOLIC PANEL, ALL GAMMA GLUTAMYL TRANSPEPTIDASE, TBH VITAMIN D 25 [place] Social History Tobacco Use Types Packs/Day Years [...] as of this encounter Miscellaneous Notes * Result Encounter Note - Kade Bowser MA - 06/06/2025 2:20 PM EDT Patient informed of the below information. She does not take a potassium supplement. She will hold the lisinopril. Lab send to [facility] per patient's request. * Result Encounter Note - Bruce Hopper NP - 06/06/2025 2:11 PM EDT Please repeat potassium only. See previous message * Result Encounter Note - Bruce Hopper NP - 06/06/2025 1:22 PM EDT Advise pt that her potassium is way too high. I don't see that she is on potassium supplement. Low potassium diet, no salt substitute and hold lisinopril. Repeat potassium tomorrow. Hydrate. documented in this encounter Plan of Treatment Upcoming Encounters Date Type Department Care Team (Late st Contact Info) Description 06/20/2025 2:30 PM EDT Clinical Support VONNIE Soliz Patient Eduction [address] [place] [address] Samuel Alexander RN 07/17/2025 3:30 PM EST Office Visit [facility] Sol[facility] Internal Medicine [address] [place] [address] Scheduled Orders Name Type Priority Associated Diagnoses Orde r Schedule Potassium Lab Routine Serum potassium elevated Expected: 06/06/2025 (Approximate), Expires: 06/06/2026 documented as of this encounter Visit Diagnoses Diagnosis Serum potassium elevated Hyperpotassemia documented in this encounter Additional Health Concerns Assessment Noted Time PHQ-9 Depression Total Score: 5 09/26/19 25 3:00 PM EST A fall risk assessment has been complete d for the patient 02/13/2023 10:21 AM EDT documented as of this encounter Care Teams Erosion Control Specialist Relationship Specialty Start Date End Date Dhruv Patterson MD [address] [place] [address] PCP - General Internal Medicine 04/28/25 James Lynch DO [address] [place], [place] Referring Physician Orthopaedic Surgery 07/23/23 Kimmie Meneses DPM [address] [place] [address] Referring Physician Podiatry 07/23/23 Delmi Najera MA Family Medicine 06/22/24 documented as of this encounter
--- OUTSIDE RECORDS SUMMARY | 2025-06-08 09:03 | XMS_ITS | Encounter Summary ---
Author Organization [facility] Address [address] [facility] [place] [address] Care Team Providers Care Vp Product Management Name Role Phone Chidi Santos DO Unavailable [phone] Chidi Santos DO Primary Care Provider [phone] James Lynch DO Unavailable [phone] Kimmie Meneses DPM Unavailable [phone] Delmi Najera MA Unavailable [phone] Dhruv Patterson MD Primary Care Provider [phone] Encounter Details Date Type Department Care Team (Late st Contact Info) Description 10/14/2024 External Result Encounter [facility] External Department Unsolicited Bruce Peace, CAFE ASSISTANT [address] [facility] [address] [place] [address] Social History Tobacco Use Types Packs/Day Years [...] Eduction [address] [place] [address] Samuel Alexander RN 07/17/2025 3:30 PM EST Office Visit [facility] Internal Medicine [address] [place] [address] documented as of this encounter Procedures Procedure Name Priority Date/Time Associated Diagnosis Comments BI MAMMOGRAM SCREENING TOMOSYNTHESIS BILATERAL 10/14/2024 3:57 PM EST documented in this encounter Results * Bilateral screening mammogram with tomosynthesis (10/14/2024 3:57 PM EST) Anatomical Region Laterality Modality Breast Bilateral Mammography 10/14/2024 3:57 PM EST Impressions 10/14/2024 4:02 PM EST NO MAMMOGRAPHIC EVIDENCE OF MALIGNANCY. ROUTINE FOLLOW-UP IS RECOMMENDED IN ONE YEAR. RESULT CODE: 1 Negative DENSITY CODE: 1 (<25% glandular) FOLLOW UP: 1YR The false-negative rate of mammography is approximately 10-percent. Management of a palpable abnormality must be based on clinical grounds. Patient was entered into a reminder system with a target due date for the next mammogram. Impression dictated by: Tonio Landis M.D.10/14/2024 4:00 PM Dictation Location: [facility] Transcribed By: [facility] 10/14/24 1600 Dictated By: Tonio Landis MD 10/14/24 1557 Signed By: <Electronically signed by Tonio Landis MD in OV> 10/14/24 1600 Narrative 10/14/2024 4:[address] [facility] Main [address] [address] Mammography Report Signed Patient: Odalys Edwards MR#: [id number] : 1940 Acct:[id number] Age/Sex: 84 / F ADM Date: 10/14/24 Loc: [place] Room: Type: [facility] CLI Attending Dr: Bruce Peace RN, MSN, ANP-C Copies to: DO NATA Fam MICHELE L RN, MSN Ordering Provider: BRUCE PEACE RN, MSN Date of Service: 10/14/24 MM/MM screening mammo BI w/CAD: SCEENING CLINICAL DATA: Screening for malignancy. SCREENING MAMMOGRAM - FULL FIELD DIGITAL WITH TOMOSYNTHESIS AND CAD COMPARISON:Dating back to 2018 Tomosynthesis craniocaudal and mediolateral oblique views of both breasts were obtained using low- dose digital technique. This examination was reviewed with the aid of CAD. The breast tissue is almost entirely fatty. There are no dominant masses, typically malignant calcifications or architectural distortion. There has been no significant interval change. MM/MM screening mammo BI w/CAD Procedure Note Radiology, Radiologist, MD - 10/14/2024 [facility] [place] [address] Mammography Report Signed Patient: Odalys Edwards AMR#: [id number] : 1940cct:[id number] Age/Sex: 84 / FADM Date: 10/14/24 Loc: [place] Room:Type: [facility] CLI Attending Dr: Bruce Peace RN, MSN, ANP-C Copies to: DO NATA Fam MICHELE L RN, MSN Ordering Provider: BRUCE PEACE RN, MSN Date of Service: 10/14/24 MM/MM screening mammo BI w/CAD: SCEENING CLINICAL DATA: Screening for malignancy. SCREENING MAMMOGRAM - FULL FIELD DIGITAL WITH TOMOSYNTHESIS AND CAD COMPARISON:Dating back to 2018 Tomosynthesis craniocaudal and mediolateral oblique views of both breastswere obtained using low- dose digital technique. This examination was reviewed with the aid ofCAD. The breast tissue is almost entirely fatty. There are no dominant masses,typically malignant calcifications or architectural distortion. There has been no significantinterval change. MM/MM screening mammo BI w/CAD IMPRESSION: NO MAMMOGRAPHIC EVIDENCE OF MALIGNANCY. ROUTINE FOLLOW-UP IS RECOMMENDED IN ONE YEAR. RESULT CODE: 1 Negative DENSITY CODE: 1 (<25% glandular) FOLLOW UP: 1YR The false-negative rate of mammography is approximately 10-percent. Management of a palpable abnormality must be based on clinical grounds. Patient was entered into a reminder system with a target due date for thenext mammogram. Impression dictated by: Tonio Landis M.D.10/14/2024 4:00 PM Dictation Location: [facility] Transcribed By: [facility] 10/14/24 1600 Dictated By: Tonio Landis MD 10/14/24 1557 Signed By: <Electronically signed by Tonio Landis MD in OV> 10/14/24 1600 us Bruce Peace CAFE ASSISTANT IMG BI PROCEDURES Final Resu lt documented in this encounter Visit Diagnoses Not on filedocumented in this encounter Additional Health Concerns Assessment Noted Time PHQ-9 Depression Total Score: 5 09/26/19 25 3:00 PM EST A fall risk assessment has been complete d for the patient 02/13/2023 10:21 AM EDT documented as of this encounter Care Teams Vp Product Management Relationship Specialty Start Date End Date Chidi Santos DO [address] [place] [address] PCP - ACO Reach 01/15/23 12/22/24 Chidi Santos DO [address] [place] [address] PCP - General Internal Medicine 02/03/23 04/27/25 Dhruv Patterson MD [address] [place] [address] PCP - General Internal Medicine 04/28/25 James Lynch DO [address] [place], [place] Referring Physician Orthopaedic Surgery 07/23/23 Kimmie Meneses DPM [address] [facility] [address] [place] [address] Referring Physician Podiatry 07/23/23 Delmi Najera MA Family Medicine 06/22/24 documented as of this encounter
--- OUTSIDE RECORDS SUMMARY | 2025-06-08 09:03 | XMS_ITS | Encounter Summary ---
Author Organization [facility] Address [address] [place] [address] Care Team Providers Care Special Officer Name Role Phone James Lynch DO Unavailable [phone] Kimmie Meneses DPM Unavailable [phone] Delmi Najera MA Unavailable [phone] Dhruv Patterson MD Primary Care Provider [phone] Encounter Details Date Type Department Care Team (Late st Contact Info) Description 06/07/2025 Orders Only [facility] Internal Medicine [address] [facility] [address] [place] [address] Bruce Hopper, SANITATION DIRECTOR [address] [facility] [address] [place] [address] Social History Tobacco Use Types Packs/Day Years [...] [address] [place] [address] Samuel Alexander RN 07/17/2025 3:30 PM EST Office Visit [facility] Internal Medicine [address] [place] [address] documented as of this encounter Visit Diagnoses Not on filedocumented in this encounter Additional Health Concerns Assessment Noted Time PHQ-9 Depression Total Score: 5 09/26/19 3:00 PM EST A fall risk assessment has been complete d for the patient 02/13/2023 10:21 AM EDT documented as of this encounter Care Teams Special Officer Relationship Specialty Start Date End Date Dhruv Patterson MD [address] [place] [address] PCP - General Internal Medicine 04/28/25 James Lynch DO [address] [place] Referring Physician Orthopaedic Surgery 07/23/23 Kimmie Meneses DPM [address] [place] [address] Referring Physician Podiatry 07/23/23 Delmi Najera MA Family Medicine 06/22/24 documented as of this encounter
--- OUTSIDE RECORDS SUMMARY | 2025-06-08 09:03 | XMS_ITS | Encounter Summary ---
Author Organization [facility] Address [address] [facility] [place] [address] Care Team Providers Care Mapping Editor Name Role Phone Chidi Santos DO Unavailable [phone] Chidi Santos DO Primary Care Provider [phone] James Lynch DO Unavailable [phone] Kimmie Meneses DPM Unavailable [phone] Delmi Najera MA Unavailable [phone] Dhruv Patterson MD Primary Care Provider [phone] Encounter Details Date Type Department Care Team (Late st Contact Info) Description 06/09/2023 Abstract [facility] Internal [facility] [address] [facility] [address] [place] [address] Anaid Polanco, HYDRATOR [address] [place] [address] Social History Tobacco Use Types Packs/Day Years [...] on file documented as of this encounter Functional Status * AUDIT-C Score Answer Date of Assessment Author 0 06/09/2023 2:09 PM EDT Letty Martinez MA * Question Answer Date of Assessment Author Q1: How often do you have a drink containing alcohol? Never 06/09/2023 2:09 PM EDT Letty Martinez MA Q2: How many drinks containing alcohol do you have on a typical day when you are drinking? Patient does not drink 06/09/2023 2:09 PM EDT Letty Martinez MA Q3: How often do you have six or more drinks on one occasion? Never 06/09/2023 2:09 PM EDT Letty Martinez MA documented as of this encounter Plan of Treatment Upcoming Encounters Date Type Department Care Team (Late st Contact Info) Description 06/20/2025 2:30 PM EDT Clinical Support VONNIE Peres Patient Eduction [address] [address] Samuel Alexander RN 07/17/2025 3:30 PM EST Office Visit [facility] Peres Internal Medicine [address] [place] [address] documented as of this encounter Visit Diagnoses Not on filedocumented in this encounter Additional Health Concerns Assessment Noted Time A fall risk assessment has been complete d for the patient 02/13/2023 10:21 AM EDT documented as of this encounter Care Teams Mapping Editor Relationship Specialty Start Date End Date Chidi Santos DO [address] [place] [address] PCP - ACO Reach 01/15/23 12/22/24 Chidi Santos DO [address] [place] [address] PCP - General Internal Medicine 02/03/23 04/27/25 Dhruv Patterson MD [address] [place] [address] PCP - General Internal Medicine 04/28/25 James Lynch DO [address] [place], [place] Referring Physician Orthopaedic Surgery 07/23/23 Kimmie Meneses DPM [address] [place] [address] Referring Physician Podiatry 07/23/23 Delmi Najera MA Family Medicine 06/22/24 documented as of this encounter
--- OUTSIDE RECORDS SUMMARY | 2025-06-08 09:03 | XMS_ITS | Encounter Summary ---
Author Organization [facility] Address [address] [facility] [place] [address] Care Team Providers Care Fire Officer Name Role Phone Chidi Santos DO Unavailable [phone] Chidi Santos DO Primary Care Provider [phone] James Lynch DO Unavailable [phone] Kimmie Meneses DPM Unavailable [phone] Delmi Najera MA Unavailable [phone] Dhruv Patterson MD Primary Care Provider [phone] Encounter Details Date Type Department Care Team (Late st Contact Info) Description 09/02/2023 Orders Only [facility] Internal Medicine [address] [facility] [address] [place] [address] A, Unknown Practice [address] [place], [place] [address] Social History Tobacco Use Types Packs/Day Years [...] [address] [place] [address] Samuel Alexander RN 07/17/2025 3:30 PM EST Office Visit [facility] Internal Medicine [address] [place] [phone] documented as of this encounter Procedures Procedure Name Priority Date/Time Associated Diagnosis Comments DIABETES EYE EXAM Routine 09/02/2023 2:26 PM EST documented in this encounter Results * Diabetes Eye Exam (09/02/2023 2:26 PM EST) us Unknown Practice A HEALTH MAINTENANCE Final Resu lt documented in this encounter Visit Diagnoses Not on filedocumented in this encounter Additional Health Concerns Assessment Noted Time PHQ-9 Depression Total Score: 0 07/23/20 11:00 AM EST A fall risk assessment has been complete d for the patient 02/13/2023 10:21 AM EDT documented as of this encounter Care Teams Fire Officer Relationship Specialty Start Date End Date Chidi Santos DO [address] [place] [address] PCP - ACO Reach 01/15/23 12/22/24 Chidi Santos DO [address] [place] [address] PCP - General Internal Medicine 02/03/23 04/27/25 Dhruv Patterson MD [address] [place] [address] PCP - General Internal Medicine 04/28/25 James Lynch DO [address] [place], [place] Referring Physician Orthopaedic Surgery 07/23/23 Kimmie Meneses DPM [address] [facility] 100 [place] [address] Referring Physician Podiatry 07/23/23 Delmi Najrea MA Family Medicine 06/22/24 documented as of this encounter
--- OUTSIDE RECORDS SUMMARY | 2025-06-08 09:03 | XMS_ITS ---
Author Organization [facility] Address [address] [facility] [place] [address] Care Team Providers Care Bail Bondsman Name Role Phone CrisJames A DO Unavailable [phone] Kimmie Meneses DPM Unavailable [phone] Delmi Najera MA Unavailable [phone] Dhruv Patterson MD Primary Care Provider [phone] Diabetes Self-Management Education Status:Enrolled (Active) Start date:05/22/2025 Enrollment date:05/22/2025 Current support & services provided:Type 2 Diabetes Management Related social drivers of health:Financial Resource Strain, Stress, Physical Activity, Food Insecurity Overview The Diabetes Self-Management Education program is designed to help patients manage their diabetes or prediabetes. Case Team Name Relationship Phone Samuel Alexander RN(Responsible Staff) Registered Nurse Continued Care and Services Coordination
--- OUTSIDE RECORDS SUMMARY | 2025-06-08 09:03 | XMS_ITS | Encounter Summary ---
Author Organization [facility] Address [address] [facility] [place] [address] Care Team Providers Care Supervisor Carbon Paper Coating Name Role Phone James Lynch DO Unavailable [phone] Kimmie Menesse DPM Unavailable [phone] Delmi Najera MA Unavailable [phone] Dhruv Patterson MD Primary Care Provider [phone] Encounter Details Date Type Department Care Team ([facility] Contact Info) Description 06/06/2025 Orders Only [facility] Internal Medicine [address] [place] [address] Virginia Smith LPN Vitamin B12 deficiency Social History Tobacco Use Types Packs/Day Years [...] VONNIE Soliz Patient Eduction [address] [place] [address] Samuel Alexander RN 07/17/2025 3:30 PM EST Office Visit [facility] Internal Medicine [address] [place] [address] Scheduled Orders Name Type Priority Associated Diagnoses Orde r Schedule Vitamin B12 Lab Routine Vitamin B12 deficiency Expected: 06/06/2025 (Approximate), Expires: 06/06/2026 documented as of this encounter Visit Diagnoses Diagnosis Vitamin B12 deficiency Other B-complex deficiencies documented in this encounter Additional Health Concerns Assessment Noted Time PHQ-9 Depression Total Score: 5 09/26/19 25 3:00 PM EST A fall risk assessment has been complete d for the patient 02/13/2023 10:21 AM EDT documented as of this encounter Care Teams Supervisor Carbon Paper Coating Relationship Specialty Start Date End Date Dhruv Patterson MD [address] [place] [address] PCP - General Internal Medicine 04/28/25 James Lynch DO [address] [place] Referring Physician Orthopaedic Surgery 07/23/23 Kimmie Meneses DPM [address] [place] [address] Referring Physician Podiatry 07/23/23 Delmi Najera MA Family Medicine 06/22/24 documented as of this encounter
--- OUTSIDE RECORDS SUMMARY | 2025-06-08 09:03 | XMS_ITS | Encounter Summary ---
Author Organization [facility] Address [address] [place] [address] Care Team Providers Care Sausage Mixer Name Role Phone James Lynch DO Unavailable [phone] Kimmie Meneses DPM Unavailable [phone] Delmi Najera MA Unavailable [phone] Dhruv Patterson MD Primary Care Provider [phone] Encounter Details Date Type Department Care Team (Late st Contact Info) Description 06/06/2025 Clinisync Result Encounter [facility] External Department Unsolicited Bruce Hopper, WHEEL ROLLER [address] [place] [address] Social History Tobacco Use Types Packs/Day Years [...] Eduction [address] [place] [address] Samuel Alexander RN 07/17/2025 3:30 PM EST Office Visit [facility] Internal Medicine [address] [place] [address] documented as of this encounter Procedures Procedure Name Priority Date/Time Associated Diagnosis Comments ACUTE HEPATITIS Routine 06/06/2025 11:42 AM EDT TBH VITAMIN D 25 [place] Routine 06/06/2025 1 1:42 AM EDT HP LIVER PANEL Routine 06/06/2025 11:4 2 AM EDT ALL GAMMA GLUTAMYL TRANSPEPTIDASE Routine 06/06/2025 11:42 AM EDT ALL BASIC METABOLIC PANEL Routine 06/06/2025 11:42 AM EDT documented in this encounter Results * ACUTE HEPATITIS (06/06/2025 11:42 AM EDT) HEP A AB, IGM Negative Negative TBH Comment: A negative anti-HAV IgM result suggests no recent or current HAV infection. HBSAG SCREEN Negative Negative TBH HEP B CORE AB, IGM Negative Negative TBH HCV AB Non Reactive Non Reactive TBH INTERPRETATION: Comment . TB Comment: Not infected with HCV unless early or acute infection is suspected (which may be delayed in an immunocompromised individual), or other evidence exists to indicate HCV infection. Performed at: - Lab[address] [id number] Fire Safety Director: Morteza Ma PhD, Phone: [phone] 06/06/2025 11:4 2 AM EDT 06/06/2025 11:51 AM EDT Narrative CLINISYNC - 06/07/2025 7:08 AM EDT us Bruce Hopper WHEEL ROLLER LAB BLOOD ORDERABLES Final R esult Performing Organization Address City/[facility]/ZIP Co de Phone Number CLINISYNC TBH * TBH VITAMIN D 25 [place] (06/06/2025 11:42 AM EDT) VITAMIN D 87.3 ng/mL TBH Comment: <20 ng/mL Vit D deficient 20-<30 ng/mL Vit D insufficient 30-100 ng/mL Vit D sufficient >100 ng/mL Potential Toxicity 06/06/2025 11:4 2 AM EDT 06/06/2025 11:51 AM EDT Narrative CLINISYNC - 06/06/2025 1:49 PM EDT us Bruce Hopper WHEEL ROLLER CLINISYNC Final Result Performing Organization Address [facility] Co de Phone Number [facility]IS[facility]NC TB * (ABNORMAL) ALL GAMMA GLUTAMYL TRANSPEPTIDASE (06/06/2025 11:42 AM EDT) GAMMA GLUTAMYL TRANSPEPTIDASE 68(H) 8 - 55 U/L TBH 06/06/2025 11:4 2 AM EDT 06/06/2025 11:51 AM EDT Narrative CLINISYNC - 06/06/2025 1:08 PM EDT us Bruce Hopper WHEEL ROLLER CLINISYNC Final Result Performing Organization Address [facility] Co de Phone Number CLINISYNC TB * (ABNORMAL) ALL BASIC METABOLIC PANEL [...] 0.55 - 1.02 mg/dL TBH TBH EGFR-AF IVORIAN >60 >=60 mL/min/1.7 3m 2 TBH TBH EGFR-NON AF IVORIAN 55(L) >=60 mL/min/1.7 3m 2 TBH BUN CREATININE RATIO 32.0 TBH CALCIUM 9.5 8.5 - 10.1 mg/dL TBH 06/06/2025 11:4 2 AM EDT 06/06/2025 11:51 AM EDT Narrative CLINISYNC - 06/06/2025 1:08 PM EDT us Bruce Hopper WHEEL ROLLER CLINISYNC Final Result CLINISYNC TB * [facility] LIVER PANEL (06/06/2025 11:42 AM EDT) BILIRUBIN TOTAL 0.4 0.2 - 1.0 mg/dL TBH BILIRUBIN DIRECT 0.1 0.0 - 0.2 mg/dL TBH ASPARTATE AMINO TRANSFERASE 27 15 - 37 [...] 06/06/2025 1:08 PM EDT us Bruce Hopper WHEEL ROLLER CLINISYNC Final Result CLINISYNC TB documented in this encounter Visit Diagnoses Not on filedocumented in this encounter Additional Health Concerns Assessment Noted Time PHQ-9 Depression Total Score: 5 09/26/19 25 3:00 PM EST A fall risk assessment has been complete d for the patient 02/13/2023 10:21 AM EDT documented as of this encounter Care Teams Sausage Mixer Relationship Specialty Start Date End Date Dhruv Patterson MD [address] [place] [address] PCP - General Internal Medicine 04/28/25 James Lynch DO [address] [place], [place] Referring Physician Orthopaedic Surgery 07/23/23 Kimmie Meneses DPM [address] [place] [address] Referring Physician Podiatry 07/23/23 Delmi Najera MA Family Medicine 06/22/24 documented as of this encounter
--- OUTSIDE RECORDS SUMMARY | 2025-06-08 09:03 | XMS_ITS | Encounter Summary ---
Author Organization [facility] Address [address] [place] [address] Care Team Providers Care Paper Sheeter Name Role Phone James Lynch DO Unavailable [phone] Kimmie Meneses DPM Unavailable [phone] Delmi Najera MA Unavailable [phone] Dhruv Patterson MD Primary Care Provider [phone] Encounter Details Date Type Department Care Team (Late st Contact Info) Description 06/07/2025 Telephone [facility] [place] [facility] [address] [place] [address] Iliana Gerber MA Social History Tobacco Use Types Packs/Day Years [...] encounter Miscellaneous Notes * Telephone Encounter - Iliana Gerber MA - 06/07/2025 3:07 PM EDT Advise pt that her potassium is way too high. I don't see that she is on potassium supplement. Low potassium diet, no salt substitute and hold lisinopril. Repeat potassium tomorrow. Hydrate. - Per Bruce Miller I attempted to call pt, vm was full. Called [facility] in [place] and spoke to the track worker. She stated she was going to contact the new car sales manager at the [facility] where [facility] is and the new car sales manager would give me a call back. Let track worker know pt needs labs rechecked JAVAD and a medication will be on hold. documented in this encounter Plan of Treatment Upcoming Encounters Date Type Department Care Team (Late st Contact Info) Description 06/20/2025 2:30 PM EDT Clinical Support [facility] Patient Eduction [address] [place] [id number] Samuel Alexander RN 07/17/2025 3:30 PM EST Office Visit [facility] [address] [place] [phone] documented as of this encounter Visit Diagnoses Not on filedocumented in this encounter Additional Health Concerns Assessment Noted Time PHQ-9 Depression Total Score: 5 09/26/19 25 3:00 PM EST A fall risk assessment has been complete d for the patient 02/13/2023 10:21 AM EDT documented as of this encounter Care Teams Paper Sheeter Relationship Specialty Start Date End Date Dhruv Patterson MD [address] [place] [address] PCP - General Internal Medicine 04/28/25 James Lynch DO [address] [place] Referring Physician Orthopaedic Surgery 07/23/23 Kimmie Meneses DPM [address] [place] [address] Referring Physician Podiatry 07/23/23 Delmi Najera MA Family Medicine 06/22/24 documented as of this encounter
--- OUTSIDE RECORDS SUMMARY | 2025-06-08 09:03 | XMS_ITS | Encounter Summary ---
Author Organization [facility] Address [address] [address] Care Team Providers Care Certified Endoscopy Technician Name Role Phone Chidi Santos DO Unavailable [phone] Chidi Santos DO Primary Care Provider [phone] James Lynch DO Unavailable [phone] Kimmie Meneses DPM Unavailable [phone] Delmi Najera MA Unavailable [phone] Dhruv Patterson MD Primary Care Provider [phone] Encounter Details Date Type Department Care Team (Late st Contact Info) Description 07/07/2024 Orders Only [facility] [address] [facility] [address] [place] [id number] A, Unknown Practice [address] [place], [place] [id number] Social History Tobacco Use Types Packs/Day Years [...] Eduction [address] [place] [phone] Samuel Alexander RN 07/17/2025 3:30 PM EST Office Visit [facility] [address] [place] [address] documented as of this encounter Procedures Procedure Name Priority Date/Time Associated Diagnosis Comments EC EXERCISE STRESS ECHOCARDIOGRAM Routine 07/07/2024 2:20 PM EST documented in this encounter Results * EC EXERCISE STRESS ECHOCARDIOGRAM (07/07/2024 2:20 PM EST) Anatomical Region Laterality Modality Radiographic Daiana ging us Unknown Practice A IMG XR PROCEDURES Final Resul t documented in this encounter Visit Diagnoses Not on filedocumented in this encounter Additional Health Concerns Assessment Noted Time PHQ-9 Depression Total Score: 0 07/23/20 11:00 AM EST A fall risk assessment has been complete d for the patient 02/13/2023 10:21 AM EDT documented as of this encounter Care Teams Certified Endoscopy Technician Relationship Specialty Start Date End Date Chidi Santos DO [address] [place] [address] PCP - ACO Reach 01/15/23 12/22/24 Chidi Santos DO [address] [place] [address] PCP - General Internal Medicine 02/03/23 04/27/25 Dhruv Patterson MD [address] [place] [address] PCP - General Internal Medicine 04/28/25 James Lynch DO [address] [place], [place] Referring Physician Orthopaedic Surgery 07/23/23 Kimmie Meneses DPM [address] [place] [address] Referring Physician Podiatry 07/23/23 Delmi Najera MA Family Medicine 06/22/24 documented as of this encounter
[2025-06-08 10:00] LABS: Potassium 5.6 mmol/L (3.5-5.1)
== END 2025-06-08 09:00 | disposition home or self-care (01) ==
LOC: LAB 09:00
PROVIDERS: PCP Internal Medicine; Visit Provider Internal Medicine
DX: E87.5 Hyperkalemia (principal)
CPT/HCPCS: 36415; 84132

== ENCOUNTER 2025-08-14 09:12 | Emergency (ER) | payer MEDICARE, SELFPAY ==
[2025-08-14 09:13] VITALS: BP 142/69; PULSE 66; O2SAT 100; BMI 31.0
--- NOTE | 2025-08-14 09:15 | XR_ITS ---
[facility] [id number] Patient Name: MAGALY MONROY MRN: [id number] date: 1940 Sex: F Assigned Patient Location: ED.MAIN Current Patient Location: ED.MAIN Accession/Order Number: [id number] Exam Date: 08/14/2025 09:35 Report Date: 08/14/2025 10:00 At the request of: DAVIDE CONLEY MD Procedure: XR wrist LT min 3V LEFT WRIST - 3 views COMPARISON: None CLINICAL DATA: Left wrist pain following fall. AP, lateral and oblique views were obtained. The bony structures are osteopenic. There is comminuted fracture at the ulnar styloid. There is also a comminuted intra-articular fracture at the distal radius. There is associated displacement, most notable on the lateral view. Mild degenerative changes are seen at the lateral wrist and first carpal metacarpal joint. Soft tissue swelling is noted. XR/XR wrist LT min 3V IMPRESSION: FRACTURES OF THE DISTAL RADIUS AND ULNAR STYLOID. Impression dictated by: Ligia Zhu M.D. 08/14/2025 10:00 AM Dictation Location: [email or web address] Electronically authenticated by: [id number] Y Date: 08/14/2025 10:00
--- NOTE | 2025-08-14 09:28 | ED_ITS ---
HPI HPI - General Adult General Chief complaint: Extremity Injury, Upper Stated complaint: FALL; L WRIST INJURY/PAIN Time Seen by Provider: 08/14/25 09:15 Source: patient Mode of arrival: ambulance Limitations: physical limitation Limitations comment: L wrist deformity History of Present Illness HPI narrative: 85-year-old female presented to the emergency department for left wrist pain. Just before coming into the emergency department by ambulance she tripped and fell and landed on her outstretched hand. She did not sustain any other injury other than to her wrist. Her elbow and shoulder do not hurt and she did not hit her head. Related Data Home Medications ?Medication ?Instructions ?Recorded ?Confirmed alendronate 70 mg tablet mg PO 08/14/25 atorvastatin 10 mg tablet mg 08/14/25 cyanocobalamin (vitamin B-12) mcg PO 08/14/25 1,000 mcg tablet,extended release ergocalciferol (vitamin D2) 1,250 08/14/25 mcg (50,000 unit) capsule insulin glargine 100 unit/mL (3 unit subcut 08/14/25 mL) subcutaneous pen (Lantus Solostar U-100 Insulin) lisinopril 10 mg tablet mg 08/14/25 metformin 500 mg tablet mg 08/14/25 ropinirole 0.5 mg tablet mg 08/14/25 sertraline 25 mg tablet mg 08/14/25 Previous Rx's ?Medication ?Instructions ?Recorded tramadol 50 mg tablet 50 mg PO Q8H PRN pain 5 days #20 08/14/25 tabs Allergies Allergy/AdvReac Type Severity Reaction Status Date / Time Sulfa (Sulfonamide Allergy Mild Hives Verified 08/14/25 09:13 Antibiotics) Opioid HPI Opioid Management Most Recent Opioid Data: Last Pain Scale 8 Today, 09:58 Last OCT Pain Assessment Today, 09:58 Review of Systems ROS Narrative A ten point review of systems is negative except as noted above. PFSH PFSH Social History Little interest or pleasure in doing things: not at all Feeling down, depressed, or hopeless: not at all Exam Narrative Exam Narrative: Nurses note and vital signs reviewed General:The patient appears in no apparent distress. Skin:Warm, dry, no pallor noted. There is no rash noted. Head:Normocephalic, atraumatic Eye: Normal conjunctiva, no drainage Ears, Nose, Mouth, and Throat: oral mucosa is moist. Nares patent. Cardiovascular:Regular Rate and Rhythm Respiratory:Patient is in no distress, no accessory muscle use, lungs are clear to auscultation, no wheezing, rales or rhonchi Back:non-tender GI: Soft and nontender Musculoskeletal: The left arm is examined. The left shoulder and elbow are nontender. The left fingers all have good range of motion. There is no break in the skin of the left wrist where there is some swelling and slight deformity Neurological:A&O, normal speech Psychiatric:Cooperative Constitutional Vital Signs, click to edit/add: Last Vital Signs Temp 97.5 F L 08/14/25 09:47 Pulse 67 08/14/25 10:15 Resp 16 08/14/25 10:15 BP 142/87 H 08/14/25 10:15 Pulse Ox 98 08/14/25 10:15 O2 Del Method Room Air 08/14/25 10:15 Course Vital Signs Vital signs: Vital Signs Pulse Rate 66 08/14/25 09:13 Respiratory Rate 18 08/14/25 09:13 Blood Pressure 142/69 H 08/14/25 09:13 Pulse Oximetry 100 08/14/25 09:13 Oxygen Delivery Method Room Air 08/14/25 09:13 Temperature 97.5 F L 08/14/25 09:47 Pulse Rate 67 08/14/25 10:15 Respiratory Rate 16 08/14/25 10:15 Blood Pressure 142/87 H 08/14/25 10:15 Pulse Oximetry 98 08/14/25 10:15 Oxygen Delivery Method Room Air 08/14/25 10:15 Medical Decision Making [facility] Narrative Medical decision making narrative: Wrist fracture is identified. The following procedures performed by me. Short arm splint applied. She is neurovascular intact. Sling also applied, application checked by me and found to be appropriate. She is neurovascularly intact. She will follow-up with her established orthopedist in the probable need for surgery was discussed. The patient states that Tylenol usually does not help her but she will take an occasional Ultram and it helps her and she does not have any issues with that so she was prescribed Ultram. Treatment diagnosis and follow-up were discussed with the patient. Differential Diagnosis Differential Diagnosis: Fracture, sprain Imaging Data Left wrist x-ray: Radiologist's impression: ITS Impressions Wrist X-Ray 08/14/25 09:15 IMPRESSION: FRACTURES OF THE DISTAL RADIUS AND ULNAR STYLOID. Impression dictated by: Ligia Zhu M.D. 08/14/2025 10:00 AM Dictation Location: [employer] Electronically authenticated by: [id number] Y Date: 08/14/2025 10:00 Discharge Plan Discharge Chief Complaint: Extremity Injury, Upper Clinical Impression: Fracture of left wrist Patient Disposition: Home, Self-Care Time of Disposition Decision: 10:26 Condition: Good Mode of Transportation: Private Vehicle Prescriptions / Home Meds: New tramadol 50 mg tablet 50 mg PO Q8H PRN (Reason: pain) 5 Days Qty: 20 0RF No Action metformin 500 mg tablet cyanocobalamin (vitamin B-12) 1,000 mcg tablet extended release PO atorvastatin 10 mg tablet alendronate 70 mg tablet PO ropinirole 0.5 mg tablet lisinopril 10 mg tablet sertraline 25 mg tablet ergocalciferol (vitamin D2) 1,250 mcg (50,000 unit) capsule insulin glargine [Lantus Solostar U-100 Insulin] 100 unit/mL (3 mL) insulin pen SUBCUT Print Language: Uzbek Instructions: Wrist Fracture in Adults (ED) Additional Instructions: Follow-up with your established orthopedist. Referrals: SREEKANTH VALENCIA [Primary Care Provider, Internal Medicine] - 1 week
[2025-08-14 09:47] VITALS: TEMP 36.4
[2025-08-14] MEDS: TRAMADOL HCL 50 MG TABLET PO (09:58)
--- OUTSIDE RECORDS SUMMARY | 2025-08-14 10:05 | XMS_ITS | Clinical Summary ---
Author Organization [facility] Address [address] [place] [address] Care Team Providers Care Riveter Portable Machine Name Role Phone CrisJames A DO Unavailable [phone] Kimmie Meneses DPM Unavailable [phone] Delmi Najera MA Unavailable [phone] Dhruv Patterson MD Primary Care Provider [phone] Allergies Active AllergyReactionsCriticalityNoted ZidjCdrqkbnzHlrstbdzh77/13/2023 Other Reaction(s): Hives/Itching Other Reaction(s): rash Medications MedicationSigDispense QuantityRefillsLast FilledStart DateEnd DateStatus Multiple Vitamins-Minerals (PreserVision AREDS 2) capsule Take 1 capsule by mouth in the morning.Active acetaminophen (Tylenol 8 Hour) 650 MG ER tablet Take 650 mg by mouth every 8 (eight) hours if needed for mild pain. Do not crush, chew, or split.Active traMADol (Ultram) 50 MG tablet Indications:Spinal stenosis of lumbar region without neurogenic claudicationTake 1 tablet (50 mg) by mouth every 8 (eight) hours if needed for severe pain 120 tablet 4Active triamterene-hydroCHLOROthiazide (Dyazide) 37.5-25 MG capsule Indications:Benign essential hypertensionTake 1 capsule by mouth in the morning. 90 capsule 5Active Calcium Carb-Cholecalciferol (Oyster Shell Calcium/Vit D3) 500-5 MG-MCG tablet Take by mouthActive ascorbic acid (Vitamin C) 500 MG ER capsule Take 500 mg by mouth DailyActive ergocalciferol (Vitamin D2) 1.25 MG (50873 UT) capsule Indications:Low vitamin D levelTake 1 capsule (1.25 mg) by mouth 1 (one) time per week 16 capsule 5Active Cyanocobalamin (Vitamin B12) 1000 MCG tablet controlled-release Indications:Age-related osteoporosis without current pathological fractureTake 1 tablet by mouth in the morning. 90 tablet 5Active Continuous Glucose Lung Splitter (Dexcom G7 Lung Splitter) device Indications:Type 2 diabetes mellitus with stage 3b chronic kidney disease, without long-term current use of insulin (HCC)1 each in the morning and 1 each at noon and 1 each in the evening and 1 each before bedtime. 1 each 5Active Continuous Glucose Sensor (Dexcom G7 Sensor) [facility] Indications:Type 2 diabetes mellitus with stage 3b chronic kidney disease, without long-term current use of insulin ([facility])1 each Every 10 (ten) days 3 each 5Active insulin glargine (Basaglar KwikPen) 100 UNIT/ML pen Indications:Type 2 diabetes mellitus with diabetic nephropathy, with long-term current use of insulin ([facility])Inject 10 Units under the skin at bedtime 10 mL 6Active alendronate (Fosamax) 70 MG tablet Indications:Spinal stenosis of lumbar region without neurogenic claudicationTake 1 tablet (70 mg) by mouth 1 (one) time per week 12 tablet 5Active metFORMIN (Glucophage) 500 MG tablet Indications:Type 2 diabetes mellitus with diabetic nephropathy, with long-term current use of insulin ([facility])Take 1 tablet (500 mg) by mouth in the morning and 1 tablet (500 mg) in the evening. Take with meals. 180 tablet 5Active rOPINIRole (Requip) 0.5 MG tablet Indications:Restless Leg SyndromeTake one tablet in morning, at 2 pm and 2 tablets at bedtime 120 tablet 5Active sertraline (Zoloft) 25 MG tablet Indications:Moderate major depression (HCC)Take 1 tablet (25 mg) by mouth every other day 15 tablet 6Active ferrous sulfate 325 (65 Fe) MG EC tablet Take 325 mg by mouth in the morning and 325 mg before bedtime. Do not crush, chew, or split.12/03/2025Discontinued(Therapy completed) atorvastatin (Lipitor) 10 MG tablet Indications:Mixed hyperlipidemiaTake 1 tablet (10 mg) by mouth Daily 90 tablet Discontinued(Therapy completed) sertraline (Zoloft) 25 MG tablet Indications:Recurrent moderate major depressive disorder with anxiety (HCC)Take 1 tablet (25 mg) by mouth Daily 90 tablet Discontinued(Reorder) rOPINIRole (Requip) 0.5 MG tablet Indications:Restless Leg SyndromeTake one tablet at 2 pm and 2 tablets at bedtime 360 tablet Discontinued(Reorder) metFORMIN (Glucophage) 500 MG tablet Indications:Type 2 diabetes mellitus with stage 3b chronic kidney disease, without long-term current use of insulin (HCC)Take 1 tablet (500 mg) by mouth in the morning and 1 tablet (500 mg) in the evening. Take with meals. 180 tablet Discontinued(Reorder)Hospital, Clinic, or Other Facility Administered MedicationOrdered DoseRouteFrequencyStart DateEnd DateStatus betamethasone acetate-betamethasone sodium phosphate (Celestone) injection 6 mg Indications:Primary osteoarthritis of left knee,Chronic pain of left knee6 mgIX Once PRN Iyvxpwaqt48Ended Active Problems ProblemNoted DateDiagnosed DateVitamin B12 qvlnsikpoj55/14/2025Type 2 diabetes mellitus with diabetic nephropathy, with long-term current use of insulin 05/07/2025Pure rmaowkwkwlbbxrnehgez97/14/2025Moderate major cojmhoxngc33/14/2025 Vitamin D pexnzgafew76/14/2025Primary vwmrcazl91/14/2025Iron deficiency anemia 05/07/2025ge-related osteoporosis without current pathological fracture 01/29/2023Essential /08/2023Obstructive sleep apnea01/29/2023 Overview (11/19/2023): Not wearing her c-pap Primary osteoarthritis involving multiple xxudgu7601/29/2023Stage 3b chronic kidney wbhreap1301/29/2023Venous insufficiency of both lower /08/2023 Overactive yqoyxmx8001/29/2023Restless legs /29/2008 Resolved Problems ProblemNoted DateDiagnosed DateResolved DateLeft sided ibpvubkf55/28/2024 08/23/2024Morbid (severe) obesity due to excess calories (E66.01)11/19/2023 08/23/2024ody mass index [BMI] 40.0-44.9, adult (Z68.41) Medicare annual wellness visit, ylohtzohlt61CP (advance care planning)MyalgiaTherapeutic drug tmrycfgqef02Lumbar canal xrstonqr87Nausea and wvsazkhe57Sciatica, left side Arthritis, acxjhupdr06Unilateral primary osteoarthritis, right hiprthritis of both kneesVitamin D mplipuniuk92Urge hmvyjkssnbus70Other obesity due to excess gudlowzc61 Encounters DateTypeDepartmentCare RmbnUjrqiwiwpfy96/03/2025 11:00 AM ESTOffice Visit [facility] [address] [place] [address] Shirley Torres PA Type 2 diabetes mellitus with diabetic nephropathy, with long-term current use of insulin (HCC) (Primary Dx); Stage 3b chronic kidney disease (CMS-HCC); Essential hypertension; Pure hypercholesterolemia; Moderate major depression (HCC); Obstructive sleep apnea; Vitamin B12 deficiency; Vitamin D deficiency; Primary insomnia; Other iron deficiency anemia; Need for immunization against influenza; Urinary incontinence, unspecified type; Restless legs rmgptbym96/03/7294Iwrppj39/01/2025 10:45 AM ESTOffice Visit [facility] [address] [place] [phone] James Lynch DO Primary osteoarthritis of left knee (Primary Dx); Chronic pain of left knee07/24/2025 8:15 AM ESTAncillary Procedure [facility] [address] [place] [phone] 07/24/20250569Ioqfpv18/17/2025Results Follow-Up [facility] [address] [place] [phone] Bruce Hopper, MIMI US LIVER07/06/2025 10:30 AM ESTAncillary Procedure [facility] [address] [place] [phone] Elevated LFTs07/06/20256673Lyuxjy17/12/4290Egmpyg14/28/2025 2:30 PM EDTClinical Support [facility] Patient [facility] [address] [place] [phone] Samuel Alexander RN Type 2 diabetes mellitus with diabetic nephropathy, with long-term current use of insulin (HCC); Stage 3b chronic kidney disease (CMS-HCC)06/20/2025amboo flowsheet [facility] [address] [place] [phone] Samuel Alexander RN 06/20/20257306Fpnqds99/16/2025Results Follow-Up [facility] [address] [place] [address] Shirley Torres PA ALL SMHUSHTCG75/16/2025linisync Result Encounter [facility] Unsolicited Dhruv Patterson MD 06/07/2025Refill [facility] [address] [place] [address] Delmi Najera MA Type 2 diabetes mellitus with stage 3b chronic kidney disease, without long-term current use of insulin (HCC); Spinal stenosis of lumbar region without neurogenic afeobyogdbfl45/15/2025 Telephone [facility] [address] [place] [phone] Iliana Gerber MA 06/07/2025Orders Only [facility] [address] [place] [phone] Bruce Hopper NP 06/06/2025Results Follow-Up [facility] [address] [place] [address] Bruce Hopper, D[employer] HOUSE WORKER [facility] LIVER PANEL, ALL BASIC METABOLIC PANEL, ALL GAMMA GLUTAMYL TRANSPEPTIDASE, [facility] VITAMIN D 25 [place]06/06/2025linisync Result Encounter [facility] Unsolicited Bruce Hopper NP 06/06/2025Telephone [facility] [address] [place] [address] Virginia Smith LPN critical lab06/06/2025Orders Only [facility] [address] [place] [phone] Virginia Smith LPN Vitamin B12 bhwjqsutrm31/29/2025 1:00 PM EDTClinical Support [facility] [address] [place] [address] Samuel Alexander RN Type 2 diabetes mellitus with diabetic nephropathy, with long-term current use of insulin ([facility]) (Primary Dx); Stage 3b chronic kidney disease ([facility]CC)05/22/2025amboo flowsheet [facility] [address] [place] [address] Samuel Alexander RN 05/22/2025Travelfrom Last 3 Months Immunizations ImmunizationAdministration DatesNext DueInfluenza, High Dose Seasonal, Preservative Free05/23/2022,07/09/2021,05/15/2017,06/05/2016,05/31/2014 Influenza, Seasonal, Quadrivalent, Yjywqxnbxi28/16/2023Influenza, seasonal, injectable, preservative free06/25/2015Influenza, seasonal, intradermal, preservative free08/23/2013Influenza, trivalent, jpxyvzzkpy54/03/2025,06/21/2024 ,05/24/2020,05/31/2019,06/10/2018Moderna SARS-CoV-2 Booster Vaccination 09/23/2021Moderna SARS-CoV-2 Znnzkezavul93/01/2022Pneumococcal Conjugate PCV 13 02/04/2016Pneumococcal Polysaccharide FKEC2739/03/20146276Yggd33/27/2025Zoster, Ypiziigivpw76/27/2019Zoster, live07/24/2013 Family History Medical HistoryRelationNameCommentsBone cancerBrotherDiabetesMotherHeart disease MotherHypertensionMotherMelanomaNeg HxRelationNameStatusCommentsBrotherDeceased patient has 3 brothersFatherDeceasedMotherDeceasedSon(2)Alive Social History Tobacco UseTypesPacks/DayYears UsedDateSmoking Tobacco: NeverPassive Smoke Exposure: PastSmokeless Tobacco: Never Tobacco Cessation:Counseling Given: Not Answered Alcohol UseStandard Drinks/WeekCommentsNever0 (1 standard drink = 0.6 oz pure alcohol)Caffeine: 2-3 cups/day coffee , 1 Diet coke dailyAUDIT-CAnswerDate RecordedQ1: How often do you have a drink containing alcohol?Monthly or less 12/21/2023verage Number of DrinksNot on file12/21/2023Q3: How often do you have six or more drinks on one occasion?Never12/21/2023HQ-2AnswerDate Recorded Patient Health Questionnaire-2 Ptimp761CommentsNoSex and Gender InformationValueDate RecordedSex Assigned at BirthNot on fileLegal SexFemale 11/05/2022 6:37 PM EDTGender IdentityNot on fileSexual OrientationNot on file OccupationIndustryJob Start DateJob End DateRetiredNot on fileNot on fileNot on file Last Filed Vital Signs Vital SignReadingTime TakenCommentsBlood Redpkhub223/6807/26/2025 11:14 AM EST Twhur524507/26/2025 11:14 AM DCTCiwscnttjgd85.7 ??C (98 ??F)07/15/2024 11:05 AM ESTRespiratory Wjpz296309/14/2023 11:05 AM ESTOxygen Vejdyailfn94%2025 11:14 AM ESTInhaled Oxygen Concentration--Kzgwzr19.4 kg (164 lb)2025 11:14 AM XVVErsuhk859.9 cm (5' 1 )2025 11:14 AM ESTBody Mass Index30.9907/26/2025 11:14 AM EST Plan of Treatment DateTypeDepartmentCare Team (Latest Contact Info)Nowehjopyns45/05/2026 10:45 AM ESTOffice Visit [facility] [address] [place] [phone] PocJames rice DO [address] [place] [address] 11/06/2025 10:00 AM EDTOffice Visit [facility] [address] [place] [address] Health MaintenanceDue DateLast DoneCommentsDiabetes: Retinopathy Screening 501/05/2024, 07/12/2021, 05/30/2021, Additional history existsCOVID-19 Vaccine ( season), 09/24/2021, 09/23/2021, Additional history existsDiabetes: Hemoglobin A1C61, 05/03/2025, 02/27/2025, Additional history existsMedicare Annual Wellness (AWV) 602/10/2024, 2Diabetes: Urine Protein Cmfccesrx89/07/2026 02/27/2025, 06/14/2024, 07/20/2023, Additional history existsPneumococcal Vaccine: 65+ KkdhyLcixmjeyx02/13/2016, 05/31/2014Influenza VaccineCompleted 2025, 06/21/2024, 07/09/2023, Additional history exists Procedures Procedure NamePriorityDate/TimeAssociated DiagnosisCommentsPR ARTHROCENTESIS ASPIR&/INJ MAJOR JT/BURSA W/O DNMgmkjmz98/01/2025 11:13 AM EST Primary osteoarthritis of left knee Chronic pain of left knee XR KNEE 3 VIEWS SIKPWrjihau11/01/2025 8:12 AM EST Primary osteoarthritis of left knee US PCWTRDywijqs86/13/2025 10:58 AM EST Elevated LFTs ALL OVXCQTUPRXhqdndc16/16/2025 9:11 AM EDT ALL MISCELLANEOUS MLRFZqbvijq84/14/2025 11:42 AM EDT ACUTE BPKCULEECAlkablp70/14/2025 11:42 AM EDT TBH VITAMIN D 25 HEYrendbw21/14/2025 11:42 AM EDT ALL GAMMA GLUTAMYL GZDTWXVXCQORNGZzvyrkk98/14/2025 11:42 AM EDT ALL BASIC METABOLIC MWNSCBikjuiy07/14/2025 11:42 AM EDT [facility] LIVER DYOUOGfzksyz94/14/2025 11:42 AM EDT HEMOGLOBIN A1C WITH OXWGanjcki76/10/2025 11:02 AM EDT Stage 3b chronic kidney disease (CMS-HCC) Type 2 diabetes mellitus with stage 3b chronic kidney disease, without long-term current use of insulin (HCC) Mixed hyperlipidemia MICROALBUMIN / CREATININE URINE WAQFFMmchumn79/07/2025 11:10 AM EDT Benign essential hypertension Stage 3b chronic kidney disease (CMS-HCC) Type 2 diabetes mellitus with stage 3b chronic kidney disease, without long-term current use of insulin (HCC) COLOR FUNDUS PHOTOGRAPHY - OU - BOTH JKDIHjtlbnz65/19/2021 12:00 PM EST from Last 3 Months or Most Recently Relevant to Health Maintenance Results * [place] ARTHROCENTESIS ASPIR&/INJ MAJOR JT/BURSA W/O US (07/24/2025 11:13 AM EST) Narrative Ariana Grace MA - 07/24/2025 11:13 AM EST Ariana Grace MA 07/25/2025 3:21 PM L Inj/Asp: L knee on 07/24/2025 11:13 AM Indications: pain Details: 22 G needle Medications: 6 mg betamethasone acetate-betamethasone sodium phosphate 6 (3-3) MG/ML Consent was given by the patient. Authorizing ProviderResult TypeResult StatusDavid A Pocos DOIN CLINIC/BEDSIDE ORDERABLESFinal Result * XR knee 3 views left (07/24/2025 8:12 AM EST)Anatomical RegionLaterality ModalityLower Extremities, KneeLeftRadiographic ImagingSpecimen (Source) Anatomical Location / LateralityCollection Method / VolumeCollection Time Received Time Narrative 07/25/2025 3:19 PM EST Imaging Result: X-ray AP bilateral weight bearing, bilateral sunrise and left lateral knee total of five views with permanent images are saved to the record does show the evidence of what appears to be a moderate amount of osteoarthritis. ?? She still has some articular cartilage remaining. ?? She does have osteopenia, likely clinical osteoporosis. ?? No evidence of fracture. ?? Authorizing ProviderResult TypeResult StatusDavid A Pocos DOIMG XR PROCEDURES Final Result * US LIVER (07/06/2025 10:58 AM EST)Anatomical RegionLateralityModalityAbdomen UltrasoundSpecimen (Source)Anatomical Location / LateralityCollection Method / VolumeCollection TimeReceived Time07/07/2025 3:25 PM EST Impressions 07/07/2025 3:29 PM EST Dilation of the common bile duct, measuring 9 mm in diameter, is likely secondary to a combination of the patient's postcholecystectomy state and age however if there is concern for choledocholithiasis, MRI of the abdomen with contrast with MRCP is recommended to further evaluate. ELECTRONICALLY SIGNED BY: Dhruv Gomes DO Narrative 07/07/2025 3:29 PM EST EXAMINATION: US LIVER HISTORY: elevated LFTs COMPARISON: None available TECHNIQUE: Ultrasound evaluation was performed of the right upper quadrant of the abdomen FINDINGS: Normal echogenicity and contour of the liver. No liver lesion or intrahepatic biliary dilatation identified. Liver length measured at approximately 12.5 cm. The gallbladder is surgically absent. Common bile duct is dilated measuring approximately 9 mm in diameter. The pancreas is poorly visualized.A simple appearing right renal cyst measures 6.7 cm. Procedure Note Dhruv Gomes DO - 07/07/2025 EXAMINATION: US LIVER HISTORY: elevated LFTs COMPARISON: None available TECHNIQUE: Ultrasound evaluation was performed of the right upper quadrantof the abdomen FINDINGS: Normal echogenicity and contour of the liver. No liver lesion orintrahepatic biliary dilatation identified. Liver length measured atapproximately 12.5 cm. The gallbladder is surgically absent. Common bileduct is dilated measuring approximately 9 mm in diameter. The pancreas ispoorly visualized. A simple appearing right renal cyst measures 6.7 cm. IMPRESSION: Dilation of the common bile duct, measuring 9 mm in diameter, is likelysecondary to a combination of the patient's postcholecystectomy state andage however if there is concern for choledocholithiasis, MRI of theabdomen with contrast with MRCP is recommended to further evaluate. ELECTRONICALLY SIGNED BY: Dhruv Gomes DO Authorizing ProviderResult TypeResult StatusMicjuliana Hopper NPIMG US PROCEDURES Final Result * (ABNORMAL) ALL POTASSIUM (06/08/2025 9:11 AM EDT)ComponentValueRef RangeTest MethodAnalysis TimePerformed AtPathologist SignaturePOTASSIUM5.6(H)3.5 - 5.1 mmol/LTBHSpecimen (Source)Anatomical Location / LateralityCollection Method / VolumeCollection TimeReceived Time06/08/2025 9:11 AM EDT1 9:12 AM EDT Narrative [facility] - 06/08/2025 10:04 AM EDT Authorizing ProviderResult TypeResult StatusRobert Douglas Pattersno MDCLINISYNCFinal ResultPerforming OrganizationAddressCity/State/ZIP CodePhone Number [facility] * ACUTE HEPATITIS (06/06/2025 11:42 AM EDT)ComponentValueRef RangeTest Method Analysis TimePerformed AtPathologist SignatureHEP A AB, IGMNegativeNegativeTBH Comment: A negative anti-HAV IgM result suggests no recent or current HAV infection. HBSAG SCREENNegativeNegativeTBHHEP B CORE AB, IGMNegativeNegativeTBHHCV ABNon ReactiveNon ReactiveTBHINTERPRETATION:Comment.TBHComment: Not infected with HCV unless early or acute infection is suspected (which may be delayed in an immunocompromised individual), or other evidence exists to indicate HCV infection. Performed at: ?? - [facility] ??[id number] Cream Dipper: Morteza Ma PhD, Phone: ??[phone] Specimen (Source)Anatomical Location / LateralityCollection Method / Volume Collection TimeReceived Time06/06/2025 11:42 AM EDT1 11:51 AM EDT Narrative [facility] - 06/07/2025 7:08 AM EDT Authorizing ProviderResult TypeResult StatusMicjuliana Hopper NPLAB BLOOD ORDERABLESFinal ResultPerforming OrganizationAddressty/State/ZIP CodePhone Number [facility] * [facility] VITAMIN D 25 [place] (06/06/2025 11:42 AM EDT)ComponentValueRef RangeTest MethodAnalysis TimePerformed AtPathologist SignatureVITAMIN D87.3ng/mLTBH Comment: <20 ng/mL Vit D deficient 20-<30 ng/mL Vit D insufficient 30-100 ng/mL ??Vit D sufficient >100 ng/mL Potential Toxicity Specimen (Source)Anatomical Location / LateralityCollection Method / Volume Collection TimeReceived Time06/06/2025 11:42 AM EDT1 11:51 AM EDT Narrative [facility] - 06/06/2025 1:49 PM EDT Authorizing ProviderResult TypeResult StatusMicjuliana Hopper NPCLINISYNCFinal ResultPerforming OrganizationAddressCity/State/ZIP CodePhone Number [facility] * [facility] LIVER PANEL (06/06/2025 11:42 AM EDT)ComponentValueRef RangeTest Method Analysis TimePerformed AtPathologist SignatureBILIRUBIN TOTAL0.40.2 - 1.0 mg/dLTBHBILIRUBIN DIRECT0.10.0 - 0.2 mg/dLTBHASPARTATE AMINO FHVTUFQIHBK1957 - 37 U/LTBHALANINE IPWXGXOCVCLTRTZI4891 - 59 U/LTBHALKALINE KLSSCCDVEUH0899 - 116 U/LTBHTOTAL PROTEIN7.36.4 - 8.2 g/dLTBHALBUMIN LEVEL3.83.4 - 5.0 g/dLTBH GLOBULIN3.5g/dLTBHALBUMIN GLOBULIN RATIO1.1TBHSpecimen (Source)Anatomical Location / LateralityCollection Method / VolumeCollection TimeReceived Time 06/06/2025 11:42 AM EDT1 11:51 AM EDT Narrative [facility] - 06/06/2025 1:08 PM EDT Authorizing ProviderResult TypeResult StatusMichelyasir Hopper NPCLINISYNCFinal ResultPerforming OrganizationAddressCity/State/ZIP CodePhone Number [facility] * ALL MISCELLANEOUS TEST (06/06/2025 11:42 AM EDT)ComponentValueRef RangeTest MethodAnalysis TimePerformed AtPathologist SignatureMISCELLANEOUS TESTCOMMENT. TBHComment: Test Ordered: [id number] Alk Phos Isoenzymes Alkaline Phosphatase ? 94 ? IU/L ? CB ?? Reference Range: 48-129 Liver Fraction %: ?46 ? % ?BN ?? Reference Range: Not Estab. Liver Fraction IU/L: ? 43 ? IU/L ? CB ?? Reference Range: 23-85 Bone Fraction %: ? 48 ? % ?BN ?? Reference Range: Not Estab. Bone Fraction IU/L: ?45 ? IU/L ? CB ?? Reference Range: 18-57 Intestinal Frac.%: ? 6 ?% ?BN ?? Reference Range: Not Estab. IntestinalFrac.IU/L: ? 6 ?IU/L ? CB ?? Reference Range: 0-14 Performed at: ??CB - [facility] [address] ??[id number] Cream Dipper: Morteza Ma PhD, Phone: ??[phone] Performed at: ??BN - [facility] [address] ??[id number] Cream Dipper: Jose Raul De La Vega MD, Phone: ??[phone] Specimen (Source)Anatomical Location / LateralityCollection Method / Volume Collection TimeReceived Time06/06/2025 11:42 AM EDT1 11:51 AM EDT Narrative [facility] - 06/10/2025 10:07 PM EDT [id number] Alkaline Phosphatase Isoenzymes Authorizing ProviderResult TypeResult StatusMichele L Ward NPCLINISYNCFinal ResultPerforming OrganizationAddressCity/State/[facility] CodePhone Number [facility]CA [facility] * (ABNORMAL) ALL GAMMA GLUTAMYL TRANSPEPTIDASE (06/06/2025 11:42 AM EDT) ComponentValueRef RangeTest MethodAnalysis TimePerformed AtPathologist SignatureGAMMA GLUTAMYL PJCQWJRPEZHOLL30(H)8 - 55 U/LTBHSpecimen (Source) Anatomical Location / LateralityCollection Method / VolumeCollection Time Received Time06/06/2025 11:42 AM EDT1 11:51 AM EDT Narrative [facility] - 06/06/2025 1:08 PM EDT Authorizing ProviderResult TypeResult StatusMichele L Ward NPCLINISYNCFinal ResultPerforming OrganizationAddressCity/State/ZIP CodePhone Number [facility] * (ABNORMAL) ALL BASIC METABOLIC PANEL (06/06/2025 11:42 AM EDT)ComponentValue Ref RangeTest MethodAnalysis TimePerformed AtPathologist HiimtkvwyJIACWP493409 - 145 mmol/LTBHPOTASSIUM6.1(HH)3.5 - 5.1 mmol/LTBHComment:RESULTS CALLED TO GWGVAQTD88959 - 107 mmol/LTBHCARBON DTGJKMX84.121.0 - 32.0 mmol/LTBHANION GAP 17.0VKXCEBRQTO12616 - 106 mg/dLTBHBLOOD UREA YJDBKMUP00.0(H)7.0 - 18.0 mg/dL TBHCREATININE0.970.55 - 1.02 mg/dLTBHTBH EGFR-AF ANGUILLAN>60>=60 mL/min/1.73m 2TBHTBH EGFR-NON AF VJGAZMBJ45(L)>=60 mL/min/1.73m 2TBHBUN CREATININE RATIO 32.4TDARQFYSXN8.58.5 - 10.1 mg/dLTBHSpecimen (Source)Anatomical Location / LateralityCollection Method / VolumeCollection TimeReceived Time06/06/2025 11:42 AM EDT1 11:51 AM EDT Narrative [facility] - 06/06/2025 1:08 PM EDT Authorizing ProviderResult TypeResult StatusMichelyasir Hopper NPCLINISYNCFinal ResultPerforming OrganizationAddressCity/State/ZIP CodePhone Number [facility] * (ABNORMAL) Hemoglobin a1c with eag (05/03/2025 11:02 AM EDT)ComponentValueRef RangeTest MethodAnalysis TimePerformed AtPathologist VqchhpgqjSloH9P5.1(H)4.8 - 5.6 %LABCORPComment: ? Prediabetes: 5.7 - 6.4 Diabetes: >6.4 Glycemic control for adults with diabetes: <7.0 Est Avg Gluc bCV579mw/dLLABCORPSpecimen (Source)Anatomical Location / Laterality Collection Method / VolumeCollection TimeReceived TimeBloodVenous blood specimen / Msspvxn7005/03/2025 11:02 AM EDT05/03/2025 Narrative [facility] - 05/04/2025 9:07 AM EDT Performed at: [address] ??[id number] Cream Dipper: Morteza Ma PhD, Phone: ??[phone] Authorizing ProviderResult TypeResult StatusChidi MILLARD BLOOD ORDERABLESFinal ResultPerforming OrganizationAddressty/State/ZIP CodePhone Number [facility] * Microalbumin / creatinine urine ratio (02/27/2025 11:10 AM EDT)ComponentValue Ref RangeTest MethodAnalysis TimePerformed AtPathologist SignatureCreat Ur 129.9Not Estab. mg/dLLABCORPAlbumin Ur8.1Not Estab. ug/mLLABCORPAlb/Creat Ratio Urine60 - 29 mg/g creatLABCORPComment: ? Normal: ?0 - ??29 ? Moderately increased: 30 - 300 Severely increased: >300 Specimen (Source)Anatomical Location / LateralityCollection Method / Volume Collection TimeReceived TimeUrineUrine specimen obtained by clean catch procedure / Brjifkm3702/27/2025 11:10 AM EDT02/27/2025 Narrative [facility] - 02/28/2025 11:07 AM EDT Performed at: [address] ??[id number] Cream Dipper: Morteza Ma PhD, Phone: ??[phone] Authorizing ProviderResult TypeResult StatusBruce Hopper NPLAB URINE ORDERABLESFinal ResultPerforming OrganizationAddressCity/State/ZIP CodePhone Number [facility] * Color [employer] - OU - Both Eyes (07/12/2021 12:00 PM EST)Anatomical RegionLateralityModalityHeadFundus PhotographySpecimen (Source)Anatomical Location / LateralityCollection Method / VolumeCollection TimeReceived Time 07/12/2021 12:00 PM EST Narrative 07/12/2021 12:00 PM EST PERFORMED AT [facility] LOCATION:[id number] Procedure Note CONVERSION, GENERIC - 01/07/2023 PERFORMED AT [facility] LOCATION:[id number] Authorizing ProviderResult TypeResult StatusJekimberly GARCIA PHOTOGRAPHY Final Result from Last 3 Months or Most Recently Relevant to Health Maintenance Insurance * Guarantor: Odalys Edwards AAccount TypeRelation to PatientDate of BirthPhone Billing AddressPersonal/LozuhmXpvp1940 [address] [place] [address] [address] Advance Directives TypeDate RecordedPatient RepresentativeExplanationAdvance Directives and Living Will11/19/2023 9:53 [id number] Living WIll Care Teams Team MemberRelationshipSpecialtyStart DateTexas Health [facility] Dhruv Patterson MD [address] [place], [place] [id number] PCP - GeneralInternal Medicine04/28/25 James Lynch DO [address] [place], [place] Referring PhysicianOrthopaedic Rodsmyv13/30/23 Kimmie Meneses DPM [address] [facility] [address] [place] [address] Referring SrmdbozmyVuxrmsrj72/30/23 Delmi Najera MA Family Mzzpmbmu45/30/24
--- OUTSIDE RECORDS SUMMARY | 2025-08-14 10:05 | XMS_ITS | Clinical Summary ---
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
[2025-08-14 10:15] VITALS: BP 142/87; PULSE 67; O2SAT 98
== END 2025-08-14 10:53 | disposition home or self-care (01) ==
PROVIDERS: Emergency Provider Emergency Medicine; PCP Internal Medicine
DX: S52.612A Displaced fracture of left ulna styloid process, initial encounter for closed fracture (principal); S52.572A Other intraarticular fracture of lower end of left radius, initial encounter for closed fracture; W01.0XXA Fall on same level from slipping, tripping and stumbling without subsequent striking against object, initial encounter
CPT/HCPCS: 29125; 73110; 99284